=== PATIENT | female | born 1970 | race African-American/Black ===

== ENCOUNTER → 2024-03-31 11:00 | Outpatient (REF) | payer MEDICARE, MEDICAID, SELFPAY | LOC: HWWDC 11:00 | PROVIDERS: ATTENDING PHYSICIAN Nurse Practitioner Adult Health; FAMILY PHYSICIAN Internal Medicine | DX: Z85.3 Personal history of malignant neoplasm of breast (principal); Z12.31 Encounter for screening mammogram for malignant neoplasm of breast | CPT/HCPCS: 77063; 77067 ==

== ENCOUNTER → 2024-04-26 07:26 | Outpatient (REF) | payer MEDICARE, MEDICAID, SELFPAY | LOC: HWRAD 07:26 | PROVIDERS: ATTENDING PHYSICIAN Internal Medicine | DX: R14.0 Abdominal distension (gaseous) (principal) | CPT/HCPCS: 76700 ==

== ENCOUNTER → 2024-06-27 10:07 | Outpatient (REF) | payer MEDICARE, MEDICAID, SELFPAY | LOC: MRI 10:07 | PROVIDERS: ATTENDING PHYSICIAN Internal Medicine | DX: D18.03 Hemangioma of intra-abdominal structures (principal) | CPT/HCPCS: 74183; A9575 ==

== ENCOUNTER → 2024-07-05 13:37 | Outpatient (REF) | payer MEDICARE, MEDICAID, SELFPAY | LOC: HWRAD 13:37 | PROVIDERS: ATTENDING PHYSICIAN Internal Medicine | DX: R59.0 Localized enlarged lymph nodes (principal) | CPT/HCPCS: 71250 ==

== ENCOUNTER → 2024-09-08 08:56 | Outpatient (REF) | payer MEDICARE, MEDICAID, SELFPAY | LOC: MRI 08:56 | PROVIDERS: ATTENDING PHYSICIAN Specialist; FAMILY PHYSICIAN Internal Medicine | DX: R26.81 Unsteadiness on feet (principal) | CPT/HCPCS: 70551 ==

== ENCOUNTER → 2024-09-22 06:37 | Outpatient (REF) | payer MEDICARE, MEDICAID, SELFPAY | LOC: RAD 06:37 | PROVIDERS: ATTENDING PHYSICIAN Internal Medicine | DX: R59.0 Localized enlarged lymph nodes (principal) | CPT/HCPCS: 71260; Q9967 ==

== ENCOUNTER 2025-02-18 14:28 | Inpatient (IN) | payer MEDICARE, MEDICAID, SELFPAY ==
[2025-02-18] VITALS (8 sets, daily range): BP systolic 122–139; BP diastolic 81–109; BMI 25.0
--- NOTE | 2025-02-18 11:03 | ED.GENMED ---
History of Present Illness
General
Chief Complaint: Abdominal Symptoms
Source: other (staff from [facility] )
Exam Limitations: other
Time Seen by Provider: 02/18/25 10:50
History of Present Illness
History of Present Illness:
Patient is a 54-year-old female with history of developmental disability bipolar disorder, sigmoid volvulus, with sigmoidectomy presents to the ER for evaluation. Caregiver reports patient has not had any stool in her ostomy since Wednesday for the
past 2 days. She also reports patient will not eat however will drink.
caregiver reports abdomen is distended.
In review of history patient was seen here status post Azul's for sigmoid volvulus July 2024
Past History
Past History
ED Past Medical History: Cancer, Hypothyroidism, Psychiatric, Other and Other
ED Past Surgical History: None
Social History
Tobacco: Non-smoker
Alcohol: None
Drug: None
Personal: Single
Living: halfway
Employment: Disabled
Family History
Family History: Other
Phy Exam
General Physical Exam
General Presentation: no apparent distress
General age: appears stated age and appears older than age
General Skin: warm
General Habitus: debilitated
General Mental: alert
General Hydration: dry mucous membranes
Cardiovascular Exam
Cardiovascular Exam: tachycardia
Pulmonary Exam
Pulmonary Exam: lungs clear and no respiratory distress
Gastrointestinal Exam
Gastrointestinal Exam: soft and other (Distended ostomy bag in place no stool in bag )
Neurological Exam
Neurological Exam: alert and other (does not communicated verbally )
Musculoskeletal Exam
Musculoskeletal Exam: full ROM
Skin Exam
Skin Exam: normal color and warm/dry
Psychiatric Exam
Psychiatric Exam: normal mood/affect
Course
Orders/Labs/Results
Orders:
Orders
02/18/25 11:13
Electrocardiogram (*1) Stat
Reason for Study: Abdominal Pain
Cardiac Monitoring- Treatment ONCE
EKG- Treatment ONCE
IV Insert/Care/Rem.- Treatment PRN
0.9% Sodium Chloride 1000 ml [Nss] 1,000 ml IV BOLUS
Ondansetron Injectable [Zofran] 4 mg IV NOW STA
02/18/25 11:17
CT Abd/pelvis W Iv Cont Urgent
Comment:
Reason For Exam: no stool in ostomy ; distended , elevated hr
02/18/25 11:18
Complete Blood Count/With Diff Urgent
Comprehensive Metabolic Panel Urgent
Lipase Urgent
02/18/25 11:27
Lactic Acid Urgent
02/18/25 12:14
Urinalysis Reflex To Culture Urgent
Date Specimen was Collected: 02/18/25
Time Specimen was Collected: 12:13
Urine Microscopic Reflex Cult Urgent
02/18/25 12:[address] Non Medication Order As Directed
Physician Order: NGT
Above order entered?: Yes
02/18/25 13:11
SURGICAL CONSULT Routine
Consulting Provider: Tyrell Frank
Was physician already notified: Yes
Reason for consult: SBO on CT
02/18/25 13:18
Gastrointestinal Tubes As Directed
Type: [place] sump
To suction?: Yes
Type of suction: Low intermittent
To straight drainage/gravity?: Yes
Directions to clamp NG tube: for ambulation/meds <30min
Irrigate tube?: Yes
Irrigant: Tap Water
Frequency: Q4H
Amount in mls: 30
Irrigation Directions: Irrigate Q4H and PRN
Comment: 16fr [place] sump
02/18/25 13:46
Midazolam HCl [Versed] 1 mg IV NOW STA
02/18/25 13:49
Midazolam HCl [Versed] 5 mg .ROUTE .STK-MED ONE
02/18/25 13:58
Restraints - Non Violent As Directed
Justification-Patient:: 1-Attempts to remove tube
Restraint Type-: Soft Limb-L&R Wrist/4rail
Apply From (date): 02/18/25
Apply from (time): 14:01
Remove (date): 02/19/25
Remove (time): 23:59
02/18/25 14:02
HYDROmorphone [Dilaudid] 0.25 mg IV NOW STA
02/18/25 14:06
Chest Single View Frontal CR [CR Chest Single View] Stat
Comment:
Reason For Exam: NGT placement
02/18/25 14:08
HYDROmorphone [Dilaudid] 0.25 mg IV NOW STA
02/18/25 14:12
Admit/Transfer Patient As Directed
Co-Sign Provider:
Level of Care: Inpatient admission
Assign to:: Medical/Surgical
Physician / Group: Hospitalists, Azam
Diagnosis: Small Bowel Obstruction
Reason for Hospitalization: SBO
Expected length of stay greater than two midnights?: Yes
ELOS- Estimated Length of Stay in days: 4
I certify the patient meets the requirements for IP care: Yes
02/18/25 14:15
Code Status As Directed
Resuscitation Status: Full Code
02/18/25 14:24
NG Tube [Gastrointestinal Tubes] As Directed
To suction?: Yes
Type of suction: Low intermittent
02/18/25 Dinner
NPO
Allow oral meds: No
Allow clear liquids: No
02/18/25 15:39
Acetaminophen 1000MG/100Ml [Ofirmev] 1,000 mg in 100 ml IV Q6HPRN
Acetaminophen IV Indication:: No ID & No Enteral Access
HYDROmorphone [Dilaudid] 0.25 mg IV Q4HPRN PRN
Lactated Ringers [Lr] 1,000 ml IV 100 mls/hr
Ondansetron Injectable [Zofran] 4 mg IV Q6HPRN PRN
02/18/25 15:39
Activity As Directed
Activity Level: As Tolerated
Intake/ Output As Directed
Frequency: Per unit guidelines
Vital Signs As Directed
Frequency: Per unit guidelines
Pt Eval And Treat Routine
Activity Level: As Tolerated
DX Deep Vein Thrombosis Video Routine
02/18/25 18:00
Enoxaparin Sodium [Lovenox] 40 mg SC QPM
02/19/25 06:00
Complete Blood Count/With Diff IN AM
Comprehensive Metabolic Panel IN AM
Magnesium IN AM
TSH IN AM
02/19/25 08:00
Pantoprazole [Protonix IV] 40 mg IV DAILY
Abnormal Lab Results
02/18/25 02/18/25
11:18 12:14
RDW 14.8 H %
(11.5-14.5)
MPV 10.8 H fL
(7.4-10.4)
Absolute Monos (auto) 1.0 H 10^3/uL
(0.1-0.6)
Monocytes % 16.0 H %
(1.7-9.3)
Glucose 113 H mg/dl
(70-99)
Calcium 11.1 H mg/dl
(8.4-10.2)
Urine Ketones 1+ A
(Negative)
Urine Albumin (Reflex) 2+ A
(Neg - Trace)
02/18/25 11:18
02/18/25 11:18
Vital Signs
Initial and Last Documented VS:
Initial Vital Signs
Temp Pulse Resp BP Pulse Ox
98.6 F 153 18 136/92 93
02/18/25 10:41 02/18/25 10:41 02/18/25 10:41 02/18/25 10:41 02/18/25 10:41
Last Documented Vital Signs
Temp Pulse Resp BP Pulse Ox
98.6 F 112 13 132/109 95
02/18/25 10:41 02/18/25 14:45 02/18/25 14:45 02/18/25 15:00 02/18/25 15:15
Hydrographical Technical Officer consulted with Physician
Hydrographical Technical Officer consulted with physician?: Yes
Name of Physician Consulted: Ju
MDM/Problems Addressed
Differential Diagnosis Includes:
Not limited to bowel obstruction, mass, hernia, mesenteric ischemia
MDM/Problems Addressed:
Patient is a 54-year-old female with a history developmental delay from [facility] history of having Aris surgery for sigmoid volvulus here in July. Patient has an ostomy. Patient presents from group facility with decreased output from
ostomy over the past several days. She is a poor historian however distended on exam heart rate elevated to the 140s. Patient was given fluids which did not heart rate. CAT scan does show high-grade small bowel obstruction. In addition patient
does have cystic mass which is shown in the pelvis from previous imaging as well. This has increased in size. Case discussed with Dr. Frank surg inhalation therapist who does recommend NG tube and admit. Case admitted to the hospitalist. I did speak with
patient's sister, Mehreen Ocampo over the phone.
Chronic conditions affecting care:
History of Azul's procedure with sigmoid volvulus; developmental delay not limited to bowel obstruction
*Radiology
Radiology exam reviewed: radiology read reviewed
*Pulse Oximetry
SaO2: 95
Oxygen Mode of Delivery: Room air
Patient hypoxic: no
*EKG
Interpreted by ED Provider?: Yes
Heart Rate: 124
Rate: normal
Rhythm: sinus
Ischemia: no ischemia
*Critical Care Note
Total Time (30-74mins, 75-104mins- exclusive of procedures): Not Applicable
Data Reviewed
Source: patient and other (Staff from [facility])
Patient Management
Discussion with other providers: Behaviorist (surg DR Frank )
ED Attending Note
-
Portions of this chart may have been created with voice recognition software.� Occasional wrong word or��sound alike� substitutions may have occurred due to the inherent limitations of voice recognition software.
Discharge Plan
Departure
Patient Disposition: Admit
Date of Disposition: 02/18/25
Time of Disposition: 12:41
Admit to: Med/Surg
Admit to doctor: hospitalist
Presentation/result/management discussed w/ accepting MD/DO: Hospitalist
Patient with high blood pressure during this ER visit?: Yes
Condition: Fair
Covid-19: Not Applicable
Discharge Problem:
high grade small bowel obstruction
Interventions
Interventions:
*Risk Screen - Suicide Last Done: 02/18/25 10:41
*General Assessment Last Done: 02/18/25 10:41
*Neglect/Abuse Screening Last Done: 02/18/25 10:41
*ED- Fall Risk Assessment Last Done: 02/18/25 11:30
*ED COVID-19 Vaccine History Last Done: 02/18/25 11:30
*Nursing Disposition Last Done: 02/18/25 15:39
SK-Avoqio-Iccvnhtjjw Assessment Last Done: 02/18/25 11:30
Discharge Date and Time
Discharge Date/Time: 02/18/25 15:40
[2025-02-18] MEDS: NSS 1000 IV (11:16)
[2025-02-18] MEDS: ZOFRAN 4 MG IV (11:16)
[2025-02-18 11:36] LABS: Hematocrit 40.2 % (37.0-47.0); Hemoglobin 13.7 g/dL (12.0-16.0); Mean Corp Hgb Conc. 34.1 g/dL (33.0-37.0); Mean Corpuscular Volume 85.2 fL (81.0-99.0); Nucleated Red Blood Cells % 0 %; Platelet Count 223 10^3/uL (130-400); Red Cell Dist. Width 14.8 % (11.5-14.5)
[2025-02-18 11:58] LABS: ALT (SGPT) 12 U/L (0-35); AST (SGOT) 23 U/L (14-36); Albumin 4.0 g/dl (3.5-5.0); Alkaline Phosphatase 71 U/L (38-126); Blood Urea Nitrogen 14 mg/dl (7-17); Calcium 11.1 mg/dl (8.4-10.2); Carbon Dioxide 30 mmol/L (22-30); Chloride 99 mmol/L (98-107); Glucose 113 mg/dl (70-99); Lipase 65 U/L (23-300); Potassium 4.1 mmol/L (3.5-5.1); Sodium 135 mmol/L (135-145); Total Protein 7.1 g/dl (6.3-8.2); eGFR > 60.00
[2025-02-18 12:28] LABS: Urine Character Clear (Clear)
[2025-02-18 12:57] LABS: Urine Red Blood Cell 0-2 /HPF (0-2); Urine Squamous Cell 16-20 /LPF (Few); Urine White Cell 0-2 /HPF (0-5)
[2025-02-18] MEDS: VERSED 1 MG IV (13:55)
[2025-02-18] MEDS: DILAUDID 0.25 MG IV (14:07)
--- NOTE | 2025-02-18 14:25 | CON.GS ---
Consultation
-
Date/Time Consultation Performed: 02/18/25 1345
Medical History
-
Chief Complaint: abdominal pain/distention
History of Present Illness:
Ms Kellogg is a 54 yo female with a h/o developmental disability, bipolar, ptsd, hypothyroid with ex lap for sigmoidectomy and creation of end colostomy for volvulus in June of 2024 who presents from her care home with abdominal pain,
increasing abdominal distention, loss off appetite and no stool output since Wednesday. A caregiver is at bedside to provide history as Ms Kellogg is unable. She is able to answer simple questions and does nod her head yes that her abdomen hurts. Her
caregiver notes that she has not been eating or drinking much since around . She has had no vomiting.
Past Medical History
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
Past Surgical History: Bowel Resection (ex lap with sigmoidectomy and creation of end colostomy 06/2025)
Social History
Tobacco: Non-Smoker
Alcohol: None
Living: Assisted Living
Employment: Disabled
Family History
Family History: Reviewed & Not Pertinent
Allergies / Home Medications
Allergy/AdvReac Type Severity Reaction Status Date / Time
clonazepam Allergy Unknown Unknown Verified 02/18/25 10:41
haloperidol (From Haldol) Allergy Unknown Unknown Verified 02/18/25 10:41
molindone (From Moban) Allergy Unknown Unknown Verified 02/18/25 10:41
nickel Allergy Unknown Unknown Verified 02/18/25 10:41
Thioxanthenes Allergy Unknown Unknown Verified 02/18/25 10:41
�Medication �Instructions �Recorded �Confirmed �Type
acetaminophen 300 mg-codeine 30 mg 1 ea PO Q4 PRN pain 01/23/17 01/23/17 History
tablet
acetaminophen 325 mg capsule 650 mg PO Q4 PRN 01/23/17 01/23/17 History
pain/fever/headache
atomoxetine 18 mg capsule 18 mg PO DAILY 01/23/17 01/23/17 History
calcium 600 mg (as 2 ea PO HS 01/23/17 01/23/17 History
carbonate)-vitamin D3 10 mcg (400
unit) tablet (Calcium 600 + D(3))
carbamide peroxide 10 % oral rinse 10 ml PO HS 01/23/17 01/23/17 History
(Antiseptic Mouth Cleanser)
dextromethorphan-guaifenesin 10 10 ml PO Q4HPRN PRN cough 01/23/17 01/23/17 History
mg-100 mg/5 mL oral syrup
divalproex 500 mg tablet,extended 750 mg PO HS 01/23/17 01/23/17 History
release 24 hr
ibuprofen 600 mg tablet 600 mg PO Q6 PRN pain 01/23/17 01/23/17 History
levothyroxine 50 mcg tablet 50 mcg PO DAILY 01/23/17 01/23/17 History
loratadine 10 mg tablet 10 mg PO DAILY PRN cough/allergies 01/23/17 01/23/17 History
medroxyprogesterone 150 mg/mL 1 ml IM .Q12 WEEKS 01/23/17 01/23/17 History
intramuscular syringe
(Depo-Provera)
multivitamin (Daily Multiple 1 ea PO DAILY 01/23/17 01/23/17 History
tablet)
ondansetron 4 mg disintegrating 4 mg PO TIDPRN PRN nausea/vomiting 01/23/17 Rx
tablet #10 tabs
pseudoephedrine HCl 30 mg tablet 30 mg PO Q6 PRN nasal congestion 01/23/17 01/23/17 History
(Sudogest)
risperidone 3 mg tablet 3 mg PO HS 01/23/17 01/23/17 History
tolterodine 2 mg capsule,extended 2 mg PO HS 01/23/17 01/23/17 History
release 24 hr
acetaminophen 325 mg tablet 650 mg PO Q4HPRN PRN mild 07/12/24 07/12/24 History
pain/headache/temp>101
atomoxetine 18 mg capsule 18 mg PO DAILY Mental 07/12/24 07/12/24 History
Health/Anxiety
calcium 600 mg (as 2 tab PO HS Supplement 07/12/24 07/12/24 History
carbonate)-vitamin D3 10 mcg (400
unit) tablet (Calcium 600 + D(3))
dextromethorphan-guaifenesin 10 10 ml PO Q4HPRN PRN cough 07/12/24 07/12/24 History
mg-100 mg/5 mL oral syrup (Chest
Congestion Relief DM)
divalproex 250 mg tablet,extended 250 mg PO DAILY Mental 07/12/24 07/12/24 History
release 24 hr Health/Anxiety
divalproex 500 mg tablet,extended 500 mg PO HS Mental Health/Anxiety 07/12/24 07/12/24 History
release 24 hr
docusate sodium 100 mg capsule 100 mg PO BID Constipation 07/12/24 07/12/24 History
hydroxyzine HCl 25 mg tablet 25 mg PO DAILYPRN PRN anxiety 07/12/24 07/12/24 History
before medical procedure
latanoprost 0.005 % eye drops 1 drp BOTH EYES HS Eye Condition 07/12/24 07/12/24 History
levothyroxine 50 mcg tablet 50 mcg PO DAILY Thyroid 07/12/24 07/12/24 History
loratadine 10 mg tablet 10 mg PO DAILYPRN PRN allergy/cough 07/12/24 07/12/24 History
neomycin-bacitracn Zn-polymyxn 3.5 1 applic topical TIDPRN PRN 07/12/24 07/12/24 History
mg-400 unit-5,000 unit top oint cuts/scrapes/abrasion
pkt (Triple Antibiotic)
polyethylene glycol 3350 17 gram 17 g PO Q48H Constipation 07/12/24 07/12/24 History
oral powder packet (Gavilax)
pseudoephedrine HCl 30 mg tablet 30 mg PO Q6HPRN PRN nasal 07/12/24 07/12/24 History
(Sudogest) congestion
risperidone 3 mg tablet 3 mg PO HS Mental Health/Anxiety 07/12/24 07/12/24 History
therapeutic multivitamin 1 tab PO DAILY Supplement 07/12/24 07/12/24 History
tolterodine 2 mg capsule,extended 2 mg PO HS Urinary Issue 07/12/24 07/12/24 History
release 24 hr
Review of Systems
-
History Source: Patient and Other (caregiver at bedside)
All other systems: Negative unless noted
A 10 point review of systems was completed, and was negative except as per HPI.
Physical Exam
Vital Signs
Temp Pulse Resp BP Pulse Ox
98.6 F 148 15 134/107 92
02/18/25 10:41 02/18/25 14:00 02/18/25 14:00 02/18/25 13:00 02/18/25 13:45
02/17/25 02/18/25 02/19/25
06:59 06:59 06:59
Actual Weight 66.9 kg
Body Mass Index (BMI) 0.0
Lab Results
02/18/25 11:18
02/18/25 11:18
WBC 6.5 10^3/uL (4.8-10.8) 02/18/25 11:18
Hgb 13.7 g/dL (12.0-16.0) 02/18/25 11:18
Hct 40.2 % (37.0-47.0) 02/18/25 11:18
Plt Count 223 10^3/uL (130-400) 02/18/25 11:18
Abs Immat Gran (auto) 0.0 10^3/uL (0-0.05) 02/18/25 11:18
Neutrophils % 59.0 % (42.2-75.2) 02/18/25 11:18
Physical Exam
General: Well Developed and Well Nourished
HEENT: Moist Mucous Membranes
Respiratory: Non Labored Respirations
GI: Soft, Tender (grossly), Distended (severe) and Other (stoma pink, viable. Some minimal stool in appliance. )
Skin: Warm and Dry
Neuro: Awake, Alert and AO x 3
Psych: Calm
Assessment / Plan
-
54 yo female with h/o developmental disability and prior ex lap with sigmoidectomy and colostomy creation for sigmoid volvulus 06/2024 who presents with abdominal distention and no stool outputs from stoma x3 days. CT imaging reviewed with with
small bowel distention and findings consistent with what is likely a high grade SBO secondary to adhesions. No pneumatosis. No evidence of bowel threat or compromise. Significant abd distention on exam but not tender. Stoma pink/viable. Afebrile.
Tachycardic with hypertension present. No leukocytosis.
Plan:
NGT placed at bedside in the ED with assistance from nursing. Versed given d/t patient agitation with placement. Secured at 60cm at the right nare. Auscultated in the stomach. XR verified good placement.
NPO with ice chips for comfort
Analgesics/antiemetics
Medical management as per primary team
No plans for emergent surgery at this time, will follow for improvement with bowel decompression/rest and IVF
--- NOTE | 2025-02-18 15:28 | HPS.HSE ---
Addendum entered and electronically signed by Ana M Nascimento MD 02/18/25 17:00:
I personally performed a history and physical exam of the patient and discussed management with the resident. I reviewed the resident's note and agree with the documented findings and plan of care HPI/CC.
GENERAL: well developed, well nourished, developmentally delayed female in some distress while getting NGT placed
HEENT: NG/AT--NGT to low suction
HEART: regular rate and rhythm, +S1, +S2, tachycardic
LUNGS : clear to auscultation bilaterally
ABDOM: soft, tender with guarding, distended, no bowel sounds--ostomy with scant soft stool
EXT: no cyanosis, clubbing, or edema
NEUROLOGIC: grossly intact
SBO-- likely due to adhesions from sigmoidectomy and ostomy creation--cannot rule out contribution from enlarging cystic mass in plevis--NPO/IVF/NGT--surgery consult apprec--follow abdominal exams and x-ray--pain control, antiemetics
Hx of Left breast cancer, unknown treatment history--Growing pelvic cystic mass--unclear etiology--would try to get records regarding breast CA treatment--consideration for biopsy of cystic mass by IR--pt also has mediastinal LAD with liver lesions
(although last imaging favored angiomas)
PTSD/Bipolar disorder--Continue home valproic acid but with IV dosing--hold oral meds (risperdal, atomoxetine)
Hypothyroidism--hold synthroid for now--if NPO prolonged, will need IV synthroid (1/2 oral dose)
Overactive bladder-- Hold home tolterodine 2 mg p.o. at bedtime
developmental delay--lives in [facility] with caregiver
DVT proph-- Lovenox
CODE STATUS--Full code
Original Note:
Family Physician
-
Family Physician: Pako Wagner
Chief Complaint
-
Abdominal pain and bloating
History of Present Illness
Libby is a 54-year-old female with developmental delay, bipolar disorder, PTSD, left breast cancer (unknown clear history), hypothyroidism, sigmoid volvulus s/p Aris surgery with ostomy in July 2024 who [facility] from a [facility] with her
caregiver for 3 days of no to low ostomy output. Per caregiver, Libby had her last solid meal on Wednesday followed by an appointment with her surgeon on . However since Wednesday, she has not been able to tolerate any solid foods. She
continues to take in liquids such as perry manju and soup. Her caregiver reports that she has also been complaining of abdominal pain, is not passing gas, has increased fatigue, nausea, and lethargy. Her caregiver states ostomy bag is usually half
full, however she has barely had any output since Wednesday. In the ED, Libby was tachycardic to the 140s and had elevated blood pressure from her baseline. This morning, she was given milk of magnesia, and had very limited ostomy output. CT A/P was
remarkable for a high-grade small bowel obstruction, continued growth of pelvic cystic mass, abdominal pelvic ascites, liver lesions (questionable hemangiomas), and right hilar lymphadenopathy (inflammatory/reactive versus metastatic). General
surgery was consulted, and NG tube was placed with sedation and restraints. She was admitted to the med/surge floor for further management of her SBO. Of note, Libby is gentle, verbal, and able to answer questions and follow instructions
appropriately, however, detailed history must be obtained from caregiver and penitentiary nursing staff. Moreover, it is unknown the history and status of her breast cancer, and if she had any treatment. This will need to be further investigated in
the coming days.
Medical History
Past Medical History
Past Medical History: Reports Cancer (Left breast cancer, incomplete history), Hypothyroidism and Psychiatric (Bipolar disorder, PTSD)
Additional Past Medical History:
Developmental delay
Past Surgical History: Reports Bowel Resection (Sigmoidectomy and creation of ostomy in August 12)
Additional Past Surgical History:
Sigmoidectomy and creation of ostomy on July 2024
Social History
Tobacco: Non-smoker
Alcohol: None
Drug: None
Living: Other (In a penitentiary with 24/7 caregiver)
Family History
Family History: Unable to Obtain
Allergies / Home Medications
Allergies reflects when Allergies were last updated in [employer].
Home Medications with original date entered in [employer]
Allergy/Medication List:
As per chart, include, clonazepam, haloperidol, molindone, nickel, thioxanthenes
Review of Systems
-
History Source: Other (Caregiver)
Constitutional: Reports Fatigue
EENT: Reports No Symptoms
Respiratory: Reports No Symptoms
Cardiac: Reports No Symptoms
Abdomen/GI: Reports Abdominal Pain, Nausea, Constipated and Pain
: Reports Other (No ostomy output)
Musculoskeletal: Reports No Symptoms
Skin: Reports No Symptoms
Neurological: Reports No Symptoms
Endocrine: Reports No Symptoms
Hematologic/Lymphatic: Reports No Symptoms
Physical Exam
Vital Signs
Vital Signs
Temp Pulse Resp BP Pulse Ox
98.6 F 148 15 134/107 92
02/18/25 10:41 02/18/25 14:00 02/18/25 14:00 02/18/25 13:00 02/18/25 13:45
Physical Exam
General: Other (Laying in bed, making eye contact, and nodding when asked questions. She is guarding her abdomen.)
HEENT: NormoCephalic, Moist mucous membranes and PERRLA
Respiratory: Clear and Non Labored Respirations
Cardiac: S1/S2 and Regular Rhythm
GI: Tender, Distended, Ostomy (With very little brown, mushy stool output) and Other (Bloated, no bowel sounds heard)
Skin: Warm and Dry
Neuro: AO x 3
Psych: Calm
Laboratory Results
-
02/18/25 11:18
02/18/25 11:18
Laboratory Results
Lactic Acid 1.3 mmol/L (0.7-2.0) 02/18/25 11:27
Total Bilirubin 0.9 mg/dl (0.2-1.3) 02/18/25 11:18
AST 23 U/L (14-36) 02/18/25 11:18
ALT 12 U/L (0-35) 02/18/25 11:18
Alkaline Phosphatase 71 U/L (38-126) 02/18/25 11:18
Lipase 65 U/L (23-300) 02/18/25 11:18
Data Reviewed
-
CT Scan: Discussed with Physician
Lab Data: Discussed with Physician
Impression/Plan
-
IMPRESSION: Libby is a 54-year-old female with developmental delay, bipolar disorder, PTSD, left breast cancer (unknown clear history), hypothyroidism, sigmoid volvulus s/p Aris surgery with ostomy in July 2024 who [facility] from a penit[facility]
with her caregiver for 3 days of no to low ostomy output found to have a high-grade small bowel obstruction on CT A/P today. See full CT A/P 02/18/2025 report below:
CT findings are most compatible with a high-grade small bowel obstruction.
Continued growth of a cystic mass in the pelvis now measuring up to 10.8 cm in size.
Mild abdominopelvic ascites.
Similar appearance of a large number of liver lesions with the largest measuring 9.6 cm in the left lobe, incompletely characterized on this exam but previously felt to represent hemangiomas on the prior abdominal MRI.
Right hilar lymphadenopathy, inflammatory/reactive versus metastatic.
PLAN:
#SBO, likely due to adhesions 2/2 sigmoidectomy and ostomy creation
#Abdominal pain and nausea 2/2 SBO
#Low ostomy output
-Consult surgery
--Per surgery, NPO for now. No oral meds. Surgery will follow.
-IV LR at 100 mL/h
-Critical I's/O's
-CBC with differential, CMP, mag
-Pain regimen: IV Dilaudid 0.25 mg every 4 hours as needed and IV Tylenol 1000 mg
- Continue IV Zofran 4 mg as needed for nausea
#Left breast cancer, unknown history
#Growing pelvic cystic mass
It is unclear what the status of her cancer is. Given that CT A/P in the ED showed increase in size of pelvic cystic mass, it is possible that her SBO was caused in part or completely by this mass.
- Obtain more history from penitentiary nursing and chart review
- Consider IR consult for biopsy of cystic mass
#PTSD
#Bipolar disorder
-Continue home valproic acid but with IV dosing.
--250 mg in the morning and 500 mg in the evening
-Hold home risperidone 3 mg and atomoxetine 18 mg capsule: Please note allergies before considering alternatives.
#Hypothyroidism
- Hold home levothyroxine 50 mg daily ISO n.p.o.
--Restart per pharmacy if NPO longer than 72 hours
#Overactive bladder
- Hold home tolterodine 2 mg p.o. at bedtime
DVT prophy: Lovenox
CODE STATUS: Full code
--- NOTE | 2025-02-18 16:05 | CM ---
senior manager creative services reviewed patient's chart and met with patient and home appliances mechanic Gill at bedside. Patient with a past medical history of developmental disability, bipolar, PTSD and Colostomy. Patient resides at [facility]. One story home with
ramp to enter, patient requires supervision with her walker per Gill at [facility]pc. Patient had [facility] visiting nurses and referral sent to [facility] to follow up with patient after discharge.
Nurse tomorrow Wednesday [facility] [phone]
[facility] nurse and report [phone]

[facility]
[phone]
[2025-02-18] MEDS: LR 1000 IV (16:18)
[2025-02-18] MEDS: OFIRMEV 100 IV (16:19)
[2025-02-18] MEDS: LOVENOX 40 MG SC (16:20)
[2025-02-18] MEDS: LEVOTHROID 25 MCG IV (18:41)
[2025-02-18 19:10] LABS: Glucose - Point of Care 92 mg/dl (70-99)
[2025-02-18] MEDS: DEPACON 55 MG IV (21:17)
[2025-02-19] LABS: Glucose - Point of Care 76 mg/dl (70-99)
--- NOTE | 2025-02-19 00:14 | W.PN.UPDATE ---
Update Note
Progress Note Update
BS 76, NPO, will change fluids. D5NS@100/hr.
[2025-02-19] MEDS: D5/0.9% SODIUM CHLORIDE 1000 IV ×2 (00:36→13:38)
[2025-02-19 05:36] LABS: Glucose - Point of Care 89 mg/dl (70-99)
[2025-02-19 06:00] VITALS: BMI 24.1
[2025-02-19 06:27] LABS: Hematocrit 37.7 % (37.0-47.0); Hemoglobin 12.5 g/dL (12.0-16.0); Mean Corp Hgb Conc. 33.2 g/dL (33.0-37.0); Mean Corpuscular Volume 88.5 fL (81.0-99.0); Nucleated Red Blood Cells % 0 %; Platelet Count 207 10^3/uL (130-400); Red Cell Dist. Width 14.9 % (11.5-14.5)
[2025-02-19 06:50] LABS: ALT (SGPT) 12 U/L (0-35); AST (SGOT) 28 U/L (14-36); Albumin 3.3 g/dl (3.5-5.0); Alkaline Phosphatase 60 U/L (38-126); Blood Urea Nitrogen 12 mg/dl (7-17); Calcium 9.7 mg/dl (8.4-10.2); Carbon Dioxide 33 mmol/L (22-30); Chloride 102 mmol/L (98-107); Estimated Creatinine Clearance 94 ml/min; Glucose 93 mg/dl (70-99); Magnesium 2.2 mg/dl (1.6-2.3); Potassium 3.6 mmol/L (3.5-5.1); Sodium 138 mmol/L (135-145); Total Protein 6.0 g/dl (6.3-8.2); eGFR > 60.00
[2025-02-19 07:16] LABS: TSH 3.15 uIU/ml (0.47-4.68)
[2025-02-19 07:25] VITALS: BP 118/88
--- NOTE | 2025-02-19 07:36 | W.PN.GS2 ---
Addendum entered and electronically signed by Juan Lemon MD 02/19/25 16:51:
I saw and examined the patient independently.
The resident's documentation was reviewed and I agree with the note, assessment and plan except where noted below.
Comment: 54-year-old female, known to the general surgery service. 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 NG tube
placed yesterday, already with some clinical signs of improvement. Ostomy is working and output from the NG tube is acrobatic dancer in color. Will continue nonoperative management of her small bowel obstruction.
N.p.o., IV fluids, NG tube to low intermittent wall suction.
Facility Worker/onc consult for growing pelvic cystic mass.
Original Note:
Today's Communication / Plan
-
NPO
BOWEL REST
Continue the NG Tube decompression
Assessment / Plan
-
54 yo female with a h/o developmental disability, bipolar, ptsd, hypothyroid with ex lap for sigmoidectomy and creation of end colostomy for volvulus in June of 2024 presented with abdominal distension.
# Abdominal distention secondary to Small Bowel Obstruction:
-Afebrile, vitals are stable.
-NGT at right side nares.
-Small bowel obstruction probably due to adhesion/hernia.
On 02/18/25 CT with iv contrast:
high-grade small bowel obstruction.
Continued growth of a cystic mass in the pelvis now measuring up to 10.8 cm in size.
Mild abdominopelvic ascites.
-Currently the patient is on NPO with ice chips for comfort
-Continue the IV fluids.
-No plans for emergent surgery at this time, patient has an improvement with bowel decompression/rest and noticed bowel movement in coleostomy tube.
- Monitor for NG tube blockage, osteomy color changes.
Subjective Data
-
Date of Service: February 19, 2025
History obtained from the nurse (on duty for this patient):
Currently patient is on NG tube on her right nares and left side colostomy tube.
Overnight the patient doesn't experience abdominal pain, nausea, vomiting, fever, chills, dysuria. She has abdominal distension which is not increasing in nature comparing from the admission.
Objective Data
-
Intake and Output
02/18/25 02/19/25 02/20/25
06:59 06:59 06:59
Intake Total 1795 / 1795
Output Total 960 / 960
Balance 835 / 835
Intake:
IV fluids (Total) 1525 / 1525
IV piggybacks 150 / 150
Amount instilled into GI Tube ( 120 / 120
Total)
[place] Sump 120 / 120
Output:
Liquid stool amount 50 / 50
Colostomy 50 / 50
Gastrointestinal tube output ( 910 / 910
Total)
[place] Sump 910 / 910
Other:
Number of approximated LARGE 2
amounts of urine
How many times incontinent 1
MODERATE amount urine
Vital Signs
Temp Pulse Resp BP Pulse Ox
99.0 F 107 20 122/81 93
02/18/25 22:48 02/18/25 22:48 02/18/25 22:48 02/18/25 22:48 02/18/25 22:48
Lab Results
02/19/25 05:49
02/19/25 05:49
Calcium 9.7 mg/dl (8.4-10.2) 02/19/25 05:49
Magnesium 2.2 mg/dl (1.6-2.3) 02/19/25 05:49
Total Bilirubin 0.7 mg/dl (0.2-1.3) 02/19/25 05:49
AST 28 U/L (14-36) 02/19/25 05:49
ALT 12 U/L (0-35) 02/19/25 05:49
Alkaline Phosphatase 60 U/L (38-126) 02/19/25 05:49
Total Protein 6.0 g/dl (6.3-8.2) L 02/19/25 05:49
Albumin 3.3 g/dl (3.5-5.0) L 02/19/25 05:49
Physical Exam
-
General: Well Developed and Well Nourished
HEENT: Moist Mucous Membranes, NG tube present- 240 ml ( clear yellow fluid with few green tinge)
Respiratory: Non Labored Respirations
GI: Soft, non-Tender (grossly), Distended (severe) and Other (stoma pink, viable. Some minimal stool 20 ml in appliance, no gas present.)
Left side reducible abdominal wall hernia present lateral to umbilical region), gurgling sound on auscultation.
Skin: Warm and Dry
Neuro: Awake, Alert and AO x 3
Psych: Calm
Patient has a richard catheter: No
Patient has a central line: No
[2025-02-19 07:41] VITALS: BP 118/88
[2025-02-19] MEDS: PROTONIX IV 40 MG IV (07:42)
[2025-02-19] MEDS: NSS (PRESERVATIVE FREE) 10 ML IV (07:42)
[2025-02-19] MEDS: DEPACON 52.5 MG IV ×2 (07:42→22:01)
[2025-02-19 10:34] VITALS: BP 123/88; BP 130/98; PULSE 101; O2SAT 90
--- NOTE | 2025-02-19 10:46 | W.PN.HOSP.TC ---
Addendum entered and electronically signed by Kenneth Ventura MD 02/19/25 12:30:
called Dr. Wagner's office and left a message for call back
Addendum entered and electronically signed by Kenneth Ventura MD 02/19/25 12:25:
Spoke to Raquel STUART with pt
GI referred to Hepatology , september 2024 USS done here and SHE SAW hepatology Sary Orellana
Seeing Pulm for sarcoid and supposed to get an CT for Pulm , seen
Saw Jumpbasting Armhole Baster in October , did a pelvic exam and a pap smear , Wood Jumpbasting Armhole Baster and' everything is fine. ' Raquel will find out about the LIME SLAKER who saw her.
H/O Malignant Cystosarcoma of the breast.
Pt has Dementia also
Correction ' epidural carcinomatosis ' should read as ' peritoneal carcinomatosis'
Original Note:
Today's Communication/Plan
-
X-ray of the abdomen
Ultrasound of the pelvis
Pt eval
Assessment / Plan
Assessment / Plan
54-year-old with small bowel obstruction abdominal pain and bloating
CT abdomen pelvis-compatible with high-grade small bowel obstruction.Continued growth of a cystic mass in the pelvis no measuring 10.8 cm in size.Mild abdominal pelvic ascites. Similar appearance of a large number of liver lesions with the largest
measuring 9.6 corporate planning manager in the left lobe incompletely characterized on this exam but felt to represent hemangiomas on the prior abdominal MRI. Right hilar lymphadenopathy, inflammatory/reactive versus metastatic.
Patient is awake and alert
Cardiovascular system S1-S2 appreciated
Chest clear to auscultation
Abdomen distended, nontender
Ostomy with some stool noted
Bowel sounds are high-pitched but appreciated
No pedal edema
# Small bowel obstruction
Likely secondary to adhesions from sigmoidectomy and ostomy creation in July 2024 for sigmoid volvulus
Cannot rule out from enlarging cystic mass in the pelvis
N.p.o. IV fluid
Surgery consulted and following
# 10.8 cm cystic mass in the pelvis-discussed with interventional radiology there is no epidural carcinomatosis therefore not able to biopsy and wound able to puncture the cyst. Hilar nodes could be sampled via bronchoscopy/EUS not percutaneously.
Unclear if it arises from ovaries or not. Start with a pelvic ultrasound.
Check tumor markers CEA, CA125, AFP
# History of lump in breast -details unclear, sister doesn't think it was cancer.
# PTSD/bipolar disorder
Continue valproate IV
Atomoxetine, risperidone currently on hold
# Overactive bladder hold tolterodine p.o.
# Hypothyroidism-add IV levothyroxine
# Developmental delay-lives in a halfway with caregiver
# DVT prophylaxis-Lovenox
# Full code
Spoke to sister and updated. Made her aware about the pelvic mass.
Left a message for [facility] to discuss her medical history and previous work up
Part of this note was created using voice recognition system. Occasional wrong word or��sound alike� substitutions may have inadvertently occurred due to the inherent limitations of voice recognition software. If noted kindly bring it to my
attention for correction.
Anticipated Discharge: > 48 hours
Subjective/Interval History
-
Date of Service: February 19, 2025
Objective Data
-
Labs:
Laboratory Results
02/19/25
05:49
WBC 5.5
Hgb 12.5
Hct 37.7
Plt Count 207
Sodium 138
Potassium 3.6
Chloride 102
Carbon Dioxide 33 H
BUN 12
Creatinine 0.6
Glucose 93
Calcium 9.7
Total Bilirubin 0.7
AST 28
ALT 12
Alkaline Phosphatase 60
Vital Signs:
Vital Signs
Temp Pulse Resp BP Pulse Ox
98.7 F 100 16 118/88 96
02/19/25 07:25 02/19/25 07:25 02/19/25 07:25 02/19/25 07:25 02/19/25 07:25
I&O
02/18/25 02/19/25 02/20/25
06:59 06:59 06:59
Intake Total 1795 / 1795
Output Total 960 / 960
Balance 835 / 835
[2025-02-19 11:36] LABS: Glucose - Point of Care 108 mg/dl (70-99)
[2025-02-19] MEDS: ZOFRAN 4 MG IV (12:28)
[2025-02-19 13:20] VITALS: BP 126/81
--- NOTE | 2025-02-19 14:12 | W.CON.GYNONC ---
Consultation
-
Date/Time Consultation Requested: 02/19/2025
Date/Time Consultation Performed: 02/19/2025
Performing Provider: Praneeth English
Reason for Consultation: Pelvic Mass
Chief Complaint
-
inability to eat
History of Present Illness
54-year-old female with developmental delay, bipolar disorder, PTSD, left breast cancer (unknown clear history), hypothyroidism, sigmoid volvulus s/p Aris surgery with ostomy in July 2024 who presents from a shelter with her caregiver for
3 days of no to low ostomy output.
�� Per caregiver, Libby had her last solid meal on Wednesday followed by an appointment with her surgeon on . However since Wednesday, she has not been able to tolerate any solid foods. She continues to take in liquids such as perry manju and
soup. Her caregiver reports that she has also been complaining of abdominal pain, is not passing gas, has increased fatigue, nausea, and lethargy. Her caregiver states ostomy bag is usually half full, however she has barely had any output since
Wednesday. In the ED, Libby was tachycardic to the 140s and had elevated blood pressure from her baseline.
I was asked to see her due to pelvic mass on CT
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
Past Surgical History: Bowel Resection (ex lap with sigmoidectomy and creation of end colostomy 06/2025)
Social History
Tobacco: Non-Smoker
Alcohol: None
Living: Assisted Living
Employment: Disabled
Family History
Family History: Reviewed & Not Pertinent
Medical History
Allergies
Allergies reflect when allergies were last updated in [employer].
clonazepam Allergy (Unknown, Verified 02/18/25 10:41)
Unknown
haloperidol (From Haldol) Allergy (Unknown, Verified 02/18/25 10:41)
Unknown
molindone (From Moban) Allergy (Unknown, Verified 02/18/25 10:41)
Unknown
nickel Allergy (Unknown, Verified 02/18/25 10:41)
Unknown
Thioxanthenes Allergy (Unknown, Verified 02/18/25 10:41)
Unknown
Physical Exam
Vital Signs / I&O
Vitals
Temp Pulse Resp BP Pulse Ox
98.7 F 100 16 118/88 96
02/19/25 07:25 02/19/25 07:25 02/19/25 07:25 02/19/25 07:25 02/19/25 07:25
I&O
02/17/25 02/18/25 02/19/25 02/20/25
06:59 06:59 06:59 06:59
Intake Total 1795 / 1795
Output Total 960 / 960
Balance 835 / 835
Physical Exam
General: No Apparent Distress and Comfortable
Respiratory: Clear and Non Labored Respirations
Cardiac: S1/S2 and Regular Rhythm
GI: Soft, Non Tender and Other (hernia midline incision present)
Musculoskeletal: No Clubbing, No Cyanosis and No Edema
Skin: Warm, Dry and Rash
Neuro: AO x 3
Hematologic/Lymphatic: No Lymphadenopathy
Results
-
02/19/25 05:49
02/19/25 05:49
[facility]
[address] [place] [id number]
[phone]
Patient Name: LIBBY HARRIS
: 1970
Unit Number: [id number]
Age/Sex: 54/F
Patient
Location: 2 [facility]
Order Provider: Kenneth Ventura MD
Exam Service Date: 02/19/25

Diagnostic Imaging Report
SignedOrder #:[id number]
Exams: US Pelvis Only (non-obstetric)
EXAMINATION: Ultrasound pelvis only
INDICATION: 54-year-old with small bowel obstruction. Cystic pelvic mass on CT of the abdomen and pelvis.
COMPARISON: CT of the abdomen and pelvis from February 18, 2025. CT of the abdomen and pelvis from July 12, 2024.
FINDINGS: Ultrasound of the pelvis is performed, with transabdominal technique.
The uterus measures 6.4 x 2.2 x 3.0 cm, with no evidence of a focal uterine mass. The endometrial stripe measures 5 mm, with no focal abnormality.
Within the midline superior to the uterus, there is a cystic mass appears to be a simple cystic mass, measuring 9.9 x 6.7 x 7.6 cm. This is present on CT examinations of February 18, 2025 and July 12, 2024, without significant interval change.
In the anterolateral right pelvis, there is a separate simple cystic mass which measures 2.7 x 3.6 x 3.6 cm, and also appears unchanged from CT of July 12, 2024. There is a small amount of free fluid surrounding this right adnexal cystic mass.
It is uncertain if this arises from the right ovary, with no adjacent stromal tissue evident.
The left ovary is not visualized.
IMPRESSION: No focal abnormality of the uterus or endometrium.
Midline simple cystic large pelvic mass, which is stable dating back to CT examination of July 12, 2024. This suggests a large benign cyst, although cystadenoma is also possible.
In the right adnexal region, there is a smaller simple cyst which is stable. Small amount of free fluid adjacent to this right adnexal cyst.
Electronically signed by Neil Oliveros MD, 02/19/2025 1:55 PM
Dictated By: Domo REEDER,Neil Izaguirre.
Dictated Date & Time: 02/19/25 1344
[facility]
[address] [place] [id number]
[phone]
Patient Name: LIBBY HARRIS
: 1970
Unit Number: [id number]
Age/Sex: 54/F
Patient
Location: EMR
Order Provider: Jasmin Maguire
Exam Service Date: 02/18/25

Diagnostic Imaging Report
SignedOrder #:[id number]
Exams: CT Abd/pelvis W Iv Cont
PROCEDURES: CT Abd/pelvis W Iv Cont
CLINICAL INDICATION: Decreased ostomy output. Abdominal distention.
TECHNIQUE: A CT examination of the abdomen and pelvis was performed following the administration of nonionic intravenous contrast. Oral contrast was not administered. Coronal and sagittal reformatted images were obtained. Automatic exposure control
radiation dose reduction technology was utilized.
COMPARISON: CT abdomen/pelvis 07/12/2024. MRI abdomen 06/27/2024
FINDINGS:
CHEST: Bibasilar atelectasis. Left hemidiaphragm elevation. Right infrahilar lymphadenopathy.
ABDOMEN: Multiple liver lesions with the largest measuring 9.6 cm in the left lobe, incompletely characterized on this exam but previously felt to represent hemangiomas on the prior abdominal MRI. Multiple small hypoattenuating splenic foci,
indeterminate. The gallbladder, bile ducts, pancreas, bilateral adrenal glands, and kidneys are unremarkable other than a few small bilateral renal cysts. No hydronephrosis.
Mild abdominal ascites, greatest in the left upper quadrant..
The abdominal aorta is normal in caliber.
Fluid-filled and diffusely dilated small bowel loops measuring up to 6 cm in diameter, most compatible with a small bowel obstruction. The transition point is somewhat difficult to discern but appears to be located in the mid abdomen (series 202,
image 20). Distal small bowel loops are small in caliber. Previous sigmoidectomy with a left anterior abdominal wall ostomy. No extraluminal free air or fluid collection.
PELVIS: Cystic mass in the pelvis measuring 10.8 x 10.4 cm, increased in size compared to 10.0 x 3.3 cm on the previous CT. Mild free fluid in the pelvis. The urinary bladder is unremarkable.
SKELETON: Chronic degenerative changes of the spine, bilateral sacroiliac joints, hips, and symphysis pubis. Mild lumbar levoscoliosis. A few sclerotic foci are again noted in the lumbar spine, sacrum, and pelvis.
IMPRESSION:
CT findings are most compatible with a high-grade small bowel obstruction.
Continued growth of a cystic mass in the pelvis now measuring up to 10.8 cm in size.
Mild abdominopelvic ascites.
Similar appearance of a large number of liver lesions with the largest measuring 9.6 cm in the left lobe, incompletely characterized on this exam but previously felt to represent hemangiomas on the prior abdominal MRI.
Right hilar lymphadenopathy, inflammatory/reactive versus metastatic.
Electronically signed by Ne De Paz, 02/18/2025 12:22 PM
[employer] Dose Report: Up-to-date CT equipment and radiation dose reduction techniques were employed. CTDIvol: 7.5 - 7.6 mGy. DLP: 895 mGy-cm.
Dictated By: Wanda De Paz DO
Dictated Date & Time: 02/18/25 1204
Impression / Plan
-
Overall she has a benign appearing cyst arising from probably left ovary and smaller cyst on right ovary.
The cyst is simple and likely benign. in 2023 it had in essence similar appearance.
In and of itself for an asymptomatic cyst I do not recommend any intervention. The patient has had significant surgical history of sigmoid resection for volvulus creation of Azul's pouch and colostomy. It is likely that the adhesions in the
pelvis will prevent it from torsion. She is asymptomatic and does not have any pain related to this. In the setting her small bowel obstruction appears to be likely due to adhesions in mid abdomen based on past CT predictive ability. I doubt that
the SBO is related to the cystic mass and the small changes less than [address] is clinically not significant over a long period of time.
If the patient's small bowel obstruction does not resolve and she requires to be operated on I am happy to be present and perform bilateral salpingo-oophorectomy . I am not recommending obtaining a CA125 because it is most likely going to be
elevated in the setting of small bowel obstruction due to inflammatory changes of abdomen.
Praneeth Englihs MD
[phone]
--- NOTE | 2025-02-19 17:50 | PTCARENOTE ---
Pt yelling out and attempting to yank NGT out. RN caregivers at bedside came doorway asking for help. This RN attempted to redirect pt which was unsuccessful. This RN and another Rn placed b/l wrist restraints on pt. Restraints order obtained. Care
ongoing.
[2025-02-19] MEDS: LEVOTHROID 25 MCG IV (18:06)
[2025-02-19] MEDS: LOVENOX 40 MG SC (18:07)
[2025-02-19 19:00] VITALS: BP 120/81
[2025-02-19 19:09] LABS: CA 125 24.8 U/mL (0-35)
[2025-02-19 19:11] LABS: AFP Male/Tumor Marker 3.13 ng/ml
--- NOTE | 2025-02-19 19:18 | PTCARENOTE ---
Pt bed alarm set off before change of shift and pt was standing at bedside. Both b/l wrist restraints were off. NGT pulled out. IV pulled out and on floor. Pt aggressive with staff and swinging at this RN. Code timoteo called. Pt escorted back to
bed. Pt placed back in b/l wrist restraints. Pt resting comfortably in bed. Report given to nightshift RN. Care ongoing.
[2025-02-19] MEDS: STERILE WATER FOR INJECTION 2.1 ML IM (19:51)
[2025-02-19] MEDS: ZYPREXA 5 MG IM (19:51)
[2025-02-19 20:13] LABS: CEA 1.26 ng/ml
[2025-02-19] MEDS: DEPACON 55 MG IV (22:01)
[2025-02-19] MEDS: XALATAN OPHTHALMIC SOLUTION 1 DROP BOTH EYES (22:01)
[2025-02-19 23:00] VITALS: BP 136/91
[2025-02-20] MEDS: D5/0.9% SODIUM CHLORIDE IV ×2 (00:19→23:20)
--- NOTE | 2025-02-20 00:47 | PTCARENOTE ---
Right NGT placed 60 at the nose, set to low inter suction draining thin clear fluid. Pts abd less distended than on prior assessment at 20:00, umbilical hernia noticeable. Pt colostomy with no drainage noted, BS hypoactive throughout .
[2025-02-20] MEDS: D5/0.9% SODIUM CHLORIDE 1000 IV (05:34)
[2025-02-20 06:00] VITALS: BMI 23.8
[2025-02-20 06:44] LABS: Hematocrit 34.1 % (37.0-47.0); Hemoglobin 11.2 g/dL (12.0-16.0); Mean Corp Hgb Conc. 32.8 g/dL (33.0-37.0); Mean Corpuscular Volume 90.2 fL (81.0-99.0); Platelet Count 198 10^3/uL (130-400); Red Cell Dist. Width 14.8 % (11.5-14.5)
[2025-02-20 07:18] LABS: Blood Urea Nitrogen 9 mg/dl (7-17); Calcium 9.0 mg/dl (8.4-10.2); Carbon Dioxide 32 mmol/L (22-30); Chloride 107 mmol/L (98-107); Estimated Creatinine Clearance 94 ml/min; Glucose 85 mg/dl (70-99); Potassium 3.3 mmol/L (3.5-5.1); Sodium 141 mmol/L (135-145); eGFR > 60.00
--- NOTE | 2025-02-20 07:18 | W.PN.GS2 ---
Addendum entered and electronically signed by Sylvester Tinoco MD 02/20/25 10:41:
Patient seen and examined
Clinical improvement with passage of flatus and stool. No nausea or vomiting. No fevers.
Gen: NAD
HEENT: NGT with non-bilious outputs
Abd: soft, NT, distended (improved), non-peritoneal, ostomy PPV with stool leaking from appliance
Patient is a 54 yo F s/p ex lap, sigmoidectomy and creation of end colostomy for volvulus in June of 2024 who p/w abdominal distension
Clinical improvement. Abdominal x-ray yesterday demonstrates continued dilation of the small bowel. Plan for NGT clamp trial today. MRI ordered by Gynecology, fear if removal of NGT today risks of potential aspiration risks during this study.
-- Clamp NGT, hook to suction for any symptoms
-- MRI pelvis ordered by [facility], would try to obtain abdomen/pelvis for hepatic lesions as well
Original Note:
Today's Communication / Plan
-
Planning for NG tube clamping for MRI procedure.
Assessment / Plan
-
54 yo female with a h/o developmental disability, bipolar, ptsd, hypothyroid with ex lap for sigmoidectomy and creation of end colostomy for volvulus in June of 2024 presented with abdominal distension.
# Abdominal distention secondary to Small Bowel Obstruction:
-Afebrile, vitals are stable.
-NGT at right side nares.
-Small bowel obstruction probably due to adhesion/hernia.
On 02/18/25 CT with iv contrast:
high-grade small bowel obstruction.
Continued growth of a cystic mass in the pelvis now measuring up to 10.8 cm in size.
Mild abdominopelvic ascites.
On 02/19/25 Abdominal X ray compared with CT scan:
Elevation of the left hemidiaphragm. Nasogastric tube is present with its tip just underneath the elevated left hemidiaphragm, probably within the stomach.
There are multiple dilated air-filled loops of small bowel, similar to prior CT scan, and suggesting persistent small bowel obstruction. Small bowel loop in the right lower abdomen measures up to 6.5 cm in diameter.
-Currently the patient is on NPO with ice chips for comfort
-Continue the IV fluids.
-No plans for emergent surgery at this time, patient has an improvement with bowel decompression/rest and noticed bowel movement in coleostomy tube.
-Planning to clamp NG tube for MRI
Subjective Data
-
Date of Service: February 20, 2025
History obtained from the nurse (on duty in charge for this patient):
Currently patient is on NG tube on her right nares and left side colostomy tube.
Overnight the patient doesn't experience abdominal pain, nausea, vomiting, fever, chills, dysuria. Her abdominal distension got reduced comparing from yesterday.
Objective Data
-
Intake and Output
02/19/25 02/20/25 02/21/25
06:59 06:59 06:59
Intake Total 1795 / 1795 2552.5 / 2552.5
Output Total 960 / 960 950 / 970 20 / 20
Balance 835 / 835 1602.5 / 1582.5 -20 / -20
Intake:
IV fluids (Total) 1525 / 1525 2300 / 2300
IV piggybacks 150 / 150 102.5 / 102.5
Amount instilled into GI Tube ( 120 / 120 150 / 150
Total)
George Sump 120 / 120 150 / 150
Output:
Liquid stool amount 50 / 50 20 / 20
Colostomy 50 / 50 20 / 20
Gastrointestinal tube output ( 910 / 910 950 / 950
Total)
George Sump 910 / 910 950 / 950
Other:
Number of approximated MODERATE 2 2
amounts of urine
Number of approximated LARGE 2
amounts of urine
How many times incontinent 1
MODERATE amount urine
How many times incontinent 2
SATURATED amount urine
Vital Signs
Temp Pulse Resp BP Pulse Ox
98.2 F 98 18 136/91 91
02/19/25 23:00 02/19/25 23:00 02/19/25 23:00 02/19/25 23:00 02/19/25 23:00
Lab Results
02/20/25 05:48
Calcium 9.7 mg/dl (8.4-10.2) 02/19/25 05:49
Magnesium 2.2 mg/dl (1.6-2.3) 02/19/25 05:49
Total Bilirubin 0.7 mg/dl (0.2-1.3) 02/19/25 05:49
AST 28 U/L (14-36) 02/19/25 05:49
ALT 12 U/L (0-35) 02/19/25 05:49
Alkaline Phosphatase 60 U/L (38-126) 02/19/25 05:49
Total Protein 6.0 g/dl (6.3-8.2) L 02/19/25 05:49
Albumin 3.3 g/dl (3.5-5.0) L 02/19/25 05:49
Physical Exam
-
General: Well Developed and Well Nourished
HEENT: Moist Mucous Membranes, NG tube present- 400 ml ( clear yellow fluid with few green tinge)
Respiratory: Non Labored Respirations
GI: Soft, non-Tender (grossly), Distended (severe) and Other (stoma pink, viable. stool present, no gas present.)
Left side reducible abdominal wall hernia present lateral to umbilical region), gurgling sound on auscultation.
Skin: Warm and Dry
Neuro: Awake, Alert and AO x 3
Psych: Calm
Patient has a richard catheter: No
Patient has a central line: No
[2025-02-20 07:25] VITALS: BP 151/104
[2025-02-20] MEDS: STERILE WATER FOR INJECTION 2.1 ML IM (07:38)
[2025-02-20] MEDS: ZYPREXA 5 MG IM (07:38)
--- NOTE | 2025-02-20 07:40 | PTCARENOTE ---
Pt sitting up in bed, yelling and cursing. Pt had just been to the bathroom, and wanted staff to stay in her room. Pt not able to be redirected at this time w/ verbal instruction. Pt's restraints to b/l wrists reapplied after walking to the
bathroom, and dose of Zyprexa given as ordered, to prevent self harm, or harm to nursing staff. Will continue to monitor closely.
--- NOTE | 2025-02-20 09:14 | W.PN.HOSP.TC ---
Today's Communication/Plan
-
see plan
Assessment / Plan
Assessment / Plan
54-year-old with small bowel obstruction abdominal pain and bloating
CT abdomen pelvis-compatible with high-grade small bowel obstruction.Continued growth of a cystic mass in the pelvis no measuring 10.8 cm in size.Mild abdominal pelvic ascites. Similar appearance of a large number of liver lesions with the largest
measuring 9.6 instructor adjunct surgical technician in the left lobe incompletely characterized on this exam but felt to represent hemangiomas on the prior abdominal MRI. Right hilar lymphadenopathy, inflammatory/reactive versus metastatic.
# Small bowel obstruction
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
-improving with ostomy output
-NGT, plan to clamp today per GS
-IVF - D5 NS
-appreciate GS consult
# 10.8 cm cystic mass in the pelvis-discussed with interventional radiology there is no peritoneal carcinomatosis therefore not able to biopsy and wound able to puncture the cyst. Hilar nodes could be sampled via bronchoscopy/EUS not percutaneously.
-appreciate First Responder/Onc Eval
-plan is for MRI today
Hypokalemia
-replete
# History of lump in breast -details unclear, sister doesn't think it was cancer.
# PTSD/bipolar disorder
Continue valproate IV
Atomoxetine, risperidone currently on hold
# Overactive bladder hold tolterodine p.o.
# Hypothyroidism-add IV levothyroxine
# Developmental delay-lives in a senior care with caregiver
# DVT prophylaxis-Lovenox
# Full code
Spoke to sister and updated. Made her aware about the pelvic mass.
Left a message for [facility] to discuss her medical history and previous work up
Part of this note was created using voice recognition system. Occasional wrong word or��sound alike� substitutions may have inadvertently occurred due to the inherent limitations of voice recognition software. If noted kindly bring it to my
attention for correction.
Anticipated Discharge: > 48 hours
Subjective/Interval History
-
Date of Service: February 20, 2025
patient is moaning out
Objective Data
-
Labs:
Laboratory Results
02/20/25
05:48
WBC 4.8
Hgb 11.2 L
Hct 34.1 L
Plt Count 198
Sodium 141
Potassium 3.3 L
Chloride 107
Carbon Dioxide 32 H
BUN 9
Creatinine 0.6
Glucose 85
Calcium 9.0
Vital Signs:
Vital Signs
Temp Pulse Resp BP Pulse Ox
99.4 F 105 20 151/104 93
02/20/25 07:25 02/20/25 07:25 02/20/25 07:25 02/20/25 07:25 02/20/25 07:25
I&O
02/19/25 02/20/25 02/21/25
06:59 06:59 06:59
Intake Total 1795 / 1795 2552.5 / 2552.5
Output Total 960 / 960 950 / 970
Balance 835 / 835 1602.5 / 1582.5 -20
Review of Systems
-
Unable to obtain full review of systems at this time due to: Patient Non-verbal
History Source: Patient
Physical Exam
-
General: Other (moaning out, NGT in place)
HEENT: Normocephalic and Atraumatic
Respiratory: Clear to Auscultation and Non Labored Respirations
Cardiac: Regular Rhythm and S1/S2
GI: Soft, Nontender, Nondistended and Ostomy (with leaking stool - RN aware )
Musculoskeletal: No Clubbing, No Cyanosis and No Edema
Skin: Warm and Dry
Neuro: Awake, Alert and No Sensory Deficits
Psych: Calm
Data Reviewed
-
Diagnostic Radiology: Report Reviewed by me
Labs: Labs Reviewed by me
[2025-02-20 09:50] LABS: Magnesium 2.2 mg/dl (1.6-2.3)
[2025-02-20] MEDS: PROTONIX IV 40 MG IV (10:45)
[2025-02-20] MEDS: NSS (PRESERVATIVE FREE) 10 ML IV (10:45)
[2025-02-20] MEDS: KCL 270 MEQ IV (10:46)
--- NOTE | 2025-02-20 15:42 | CM ---
CM reviewed chart- ADC>48 hours
Pt from [facility] shelter and pt accepted for service by Scarlet on dc
PT will VN recs
Discharge Disposition- return to [facility] with Scarlet PEGUERO
[2025-02-20 16:30] VITALS: BP 141/95
[2025-02-20] MEDS: LOVENOX SC ×2 (18:43→18:45)
[2025-02-20] MEDS: RISPERDAL 3 MG PO (21:16)
[2025-02-20] MEDS: XALATAN OPHTHALMIC SOLUTION 1 DROP BOTH EYES (21:16)
[2025-02-20] MEDS: DETROL 1 MG PO (21:18)
[2025-02-20] MEDS: DEPACON 57.5 MG IV (21:19)
[2025-02-20 22:22] LABS: Glucose - Point of Care 47 mg/dl (70-99)
[2025-02-20 22:22] LABS: Glucose - Point of Care 84 mg/dl (70-99)
[2025-02-20 23:10] VITALS: BP 143/98
[2025-02-21] MEDS: D5/0.9% SODIUM CHLORIDE 1000 IV ×3 (00:40→20:59)
[2025-02-21 06:24] VITALS: BMI 24.0
[2025-02-21 07:10] VITALS: BP 137/101
--- NOTE | 2025-02-21 07:15 | W.PN.GS2 ---
Addendum entered and electronically signed by Juan Lemon MD 02/21/25 09:51:
I saw and examined the patient independently.
The resident's documentation was reviewed and I agree with the note, assessment and plan except where noted below.
This is a 54-year-old female status post open sigmoidectomy with end colostomy for sigmoid volvulus in 2023 who presents with a small bowel obstruction now resolved. CT imaging demonstrated increase in a cystic pelvic mass.
Will obtain an MRI of the abdomen to better evaluate her liver hemangiomas as well as an MRI of the pelvis to better evaluate the cystic pelvic mass.
Okay to remove NG tube and after her imaging studies and start on a clear liquid diet.
General surgery will continue to follow.
Original Note:
Today's Communication / Plan
-
MRI SCAN
Assessment / Plan
-
54 yo female with a h/o developmental disability, bipolar, ptsd, hypothyroid with ex lap for sigmoidectomy and creation of end colostomy for volvulus in June of 2024 presented with abdominal distension.
# Abdominal distention secondary to Small Bowel Obstruction:
-Afebrile, vitals are stable.
-Clamped NGT at right side nare for the MRI abdomen without contrast for today. Planning to remove NG tube after MRI.
-Small bowel obstruction probably due to adhesion/hernia.
On 02/18/25 CT with iv contrast:
high-grade small bowel obstruction.
Continued growth of a cystic mass in the pelvis now measuring up to 10.8 cm in size.
Mild abdominopelvic ascites.
On 02/19/25 Abdominal X ray compared with CT scan:
Elevation of the left hemidiaphragm. Nasogastric tube is present with its tip just underneath the elevated left hemidiaphragm, probably within the stomach.
There are multiple dilated air-filled loops of small bowel, similar to prior CT scan, and suggesting persistent small bowel obstruction. Small bowel loop in the right lower abdomen measures up to 6.5 cm in diameter.
-Currently the patient is on NPO with ice chips for comfort
-Continue the IV fluids.
-No plans for emergent surgery at this time, patient has an improvement with bowel decompression/rest and noticed bowel movement in coleostomy tube.
Subjective Data
-
Date of Service: February 21, 2025
History obtained from the nurse (on duty in charge for this patient):
Currently patient has left side colostomy tube and clamped NG tube on her right nares.
Overnight the patient passed flatus, and had abdominal movement and abdominal distension reduced comparing from yesterday. Patient is ambulating around the room.
The pt doesn't experience abdominal pain, nausea, vomiting, fever, chills, dysuria.
Objective Data
-
Intake and Output
02/20/25 02/21/25 02/22/25
06:59 06:59 06:59
Intake Total 2552.5 / 2552.5 1370 / 1370
Output Total 950 / 970 220 / 220
Balance 1602.5 / 1582.5 1150 / 1150
Intake:
Oral fluids 120 / 120
IV fluids (Total) 2300 / 2300 1200 / 1200
IV piggybacks 102.5 / 102.5 50 / 50
Amount instilled into GI Tube ( 150 / 150
Total)
Mccaskill Sump 150 / 150
Output:
Liquid stool amount 20 / 20
Colostomy 20 / 20
Gastrointestinal tube output ( 950 / 950
Total)
Mccaskill Sump 950 / 950
Urine, Voided 200 / 200
Other:
Number of approximated MODERATE 2 1
amounts of urine
How many times incontinent 2
MODERATE amount urine
How many times incontinent 2 2
SATURATED amount urine
Vital Signs
Temp Pulse Resp BP Pulse Ox
98.8 F 103 16 143/98 94
02/20/25 23:10 02/20/25 23:10 02/20/25 23:10 02/20/25 23:10 02/20/25 23:10
Lab Results
02/20/25 05:48
Calcium 9.0 mg/dl (8.4-10.2) 02/20/25 05:48
Magnesium 2.2 mg/dl (1.6-2.3) 02/20/25 05:48
Total Bilirubin 0.7 mg/dl (0.2-1.3) 02/19/25 05:49
AST 28 U/L (14-36) 02/19/25 05:49
ALT 12 U/L (0-35) 02/19/25 05:49
Alkaline Phosphatase 60 U/L (38-126) 02/19/25 05:49
Total Protein 6.0 g/dl (6.3-8.2) L 02/19/25 05:49
Albumin 3.3 g/dl (3.5-5.0) L 02/19/25 05:49
Physical Exam
-
General: Well Developed and Well Nourished
HEENT: Moist Mucous Membranes, Clamped NG tube
Respiratory: Non Labored Respirations
GI: Soft, non-Tender (grossly), Distended (severe) and Other (stoma pink, viable. no stool , gas present.)
reducible abdominal wall hernia present lateral to umbilical region, midline abdominal surgical incisional scar present, gurgling sound on auscultation.
Skin: Warm and Dry
Neuro: Awake, Alert and AO x 3
Psych: Calm
Patient has a richard catheter: No
Patient has a central line: No
[2025-02-21 07:25] LABS: Glucose - Point of Care 78 mg/dl (70-99)
[2025-02-21] MEDS: ZYPREXA 5 MG IM (08:02)
[2025-02-21] MEDS: STERILE WATER FOR INJECTION 2.1 ML IM (08:04)
[2025-02-21] MEDS: NSS (PRESERVATIVE FREE) 10 ML IV (08:08)
[2025-02-21] MEDS: PROTONIX IV 40 MG IV (08:08)
[2025-02-21 08:27] LABS: Blood Urea Nitrogen 4 mg/dl (7-17); Calcium 8.9 mg/dl (8.4-10.2); Carbon Dioxide 26 mmol/L (22-30); Chloride 112 mmol/L (98-107); Estimated Creatinine Clearance 94 ml/min; Glucose 88 mg/dl (70-99); Magnesium 2.0 mg/dl (1.6-2.3); Potassium 3.4 mmol/L (3.5-5.1); Sodium 141 mmol/L (135-145); eGFR > 60.00
[2025-02-21] MEDS: SYNTHROID 50 MCG PO (10:01)
[2025-02-21] MEDS: DEPACON 52.5 MG IV (10:01)
[2025-02-21 11:42] LABS: Glucose - Point of Care 75 mg/dl (70-99)
[2025-02-21 11:57] VITALS: BMI 24.0
--- NOTE | 2025-02-21 12:28 | W.PN.HOSP.TC ---
Today's Communication/Plan
-
NGT to be pulled
clear liquid diet
stop IVF if tolerating diet
Assessment / Plan
Assessment / Plan
54-year-old with small bowel obstruction abdominal pain and bloating
CT abdomen pelvis-compatible with high-grade small bowel obstruction.Continued growth of a cystic mass in the pelvis no measuring 10.8 cm in size.Mild abdominal pelvic ascites. Similar appearance of a large number of liver lesions with the largest
measuring 9.6 control and recovery combat rescue in the left lobe incompletely characterized on this exam but felt to represent hemangiomas on the prior abdominal MRI. Right hilar lymphadenopathy, inflammatory/reactive versus metastatic.
# Small bowel obstruction
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
-improving with ostomy output
-OK for NGT removal today per GS
-CLD ordered
-stop IVF if patient tolerates clears
-appreciate GS consult
# 10.8 cm cystic mass in the pelvis-discussed with interventional radiology there is no peritoneal carcinomatosis therefore not able to biopsy and wound able to puncture the cyst. Hilar nodes could be sampled via bronchoscopy/EUS not percutaneously.
-appreciate Infrastructure Solutions Architect/Onc Eval
-s/p MRI - benign appearing
MR IMPRESSION:
10.2 cm midline pelvic cystic lesion that appears to arise from the left ovary. Smaller 3.6 cm cystic lesion of the right ovary. Both are simple appearing without significant nodularity, septations, or enhancement.
Mild abdominopelvic ascites.
Hypokalemia
-replete
# History of lump in breast -details unclear, sister doesn't think it was cancer.
# PTSD/bipolar disorder
Continue valproate IV - change to PO
Atomoxetine, risperidone currently on hold
# Overactive bladder
# Hypothyroidism-add IV levothyroxine
# Developmental delay-[facility] a [facility] with caregiver
# DVT prophylaxis-Lovenox
# Full code
Anticipated Discharge: 24 - 48 hours
Subjective/Interval History
-
Date of Service: February 21, 2025
she appears much improved today, no moaning
able to tell me she is hungry
Objective Data
-
Labs:
Laboratory Results
02/21/25
06:58
Sodium 141
Potassium 3.4 L
Chloride 112 H
Carbon Dioxide 26
BUN 4 L
Creatinine 0.5 L
Glucose 88
Calcium 8.9
Vital Signs:
Vital Signs
Temp Pulse Resp BP Pulse Ox
98.7 F 98 17 137/101 94
02/21/25 07:10 02/21/25 07:10 02/21/25 07:10 02/21/25 07:10 02/21/25 07:10
I&O
02/20/25 02/21/25 02/22/25
06:59 06:59 06:59
Intake Total 2552.5 / 2552.5 1370 / 1370
Output Total 950 / 970 220 / 220
Balance 1602.5 / 1582.5 1150 / 1150
Review of Systems
-
History Source: Patient
All other systems: Reviewed and negative
Physical Exam
-
General: No Apparent Distress
HEENT: PERRLA
Respiratory: Clear to Auscultation; Negative Wheezes
Cardiac: Regular Rhythm and S1/S2
GI: Soft and Other (ostomy with output )
Musculoskeletal: No Edema
Skin: Warm and Dry; Negative Rash
Neuro: AO x 3
Psych: Calm
Data Reviewed
-
Diagnostic Radiology: Report Reviewed by me
Labs: Labs Reviewed by me
[2025-02-21] MEDS: KCL 270 MEQ IV (13:00)
[2025-02-21 14:10] VITALS: BP 131/88
[2025-02-21 15:05] VITALS: BP 141/94
[2025-02-21 16:27] LABS: Glucose - Point of Care 80 mg/dl (70-99)
[2025-02-21] MEDS: LOVENOX 40 MG SC (18:07)
[2025-02-21] MEDS: DEPACON 57.5 MG IV (20:59)
[2025-02-21] MEDS: DETROL 1 MG PO (20:59)
[2025-02-21] MEDS: RISPERDAL 3 MG PO (20:59)
[2025-02-21 21:27] LABS: Glucose - Point of Care 105 mg/dl (70-99)
[2025-02-21] MEDS: XALATAN OPHTHALMIC SOLUTION 1 DROP BOTH EYES (22:01)
[2025-02-21 23:03] VITALS: BP 142/101
[2025-02-22 03:06] VITALS: BP 130/90
[2025-02-22 05:52] VITALS: BMI 24.0
[2025-02-22 06:54] LABS: Glucose - Point of Care 73 mg/dl (70-99)
[2025-02-22 07:07] LABS: Blood Urea Nitrogen 2 mg/dl (7-17); Calcium 9.0 mg/dl (8.4-10.2); Carbon Dioxide 27 mmol/L (22-30); Chloride 111 mmol/L (98-107); Estimated Creatinine Clearance 94 ml/min; Glucose 79 mg/dl (70-99); Potassium 3.6 mmol/L (3.5-5.1); Sodium 143 mmol/L (135-145); eGFR > 60.00
--- NOTE | 2025-02-22 07:43 | W.PN.GS2 ---
Addendum entered and electronically signed by Tyrell Frank MD 02/22/25 11:00:
I was physically present and personally performed the alfred portions of the surgical evaluation and/or procedure with the resident. I discussed the findings, reviewed the resident�s note, and confirmed the medical decision-making. I provided direct
supervision as required and agree with the assessment and plan as documented with the following additions/corrections:
Tolerated dietary advancement for breakfast
Denies abdominal pain
AFVSS
ABD: Soft, distended hernia but nontender. Left-sided ostomy with stool and air
Assessment/plan: 54-year-old female admitted with small bowel obstruction now resolving
Low residue diet as tolerated
Original Note:
Today's Communication / Plan
-
Advanced the diet.
Assessment / Plan
-
54 yo female with a h/o developmental disability, bipolar, PTSD, hypothyroid with ex lap for sigmoidectomy and creation of end colostomy for volvulus in June of 2024 presented with abdominal distension.
# Abdominal distention secondary to Small Bowel Obstruction:
-Afebrile, vitals are stable.
- NG tube removed after MRI.
-Small bowel obstruction probably due to adhesion/hernia.
On 02/18/25 CT with iv contrast:
high-grade small bowel obstruction.
Continued growth of a cystic mass in the pelvis now measuring up to 10.8 cm in size.
Mild abdominopelvic ascites.
On 02/19/25 Abdominal X ray compared with CT scan:
Elevation of the left hemidiaphragm. Nasogastric tube is present with its tip just underneath the elevated left hemidiaphragm, probably within the stomach.
There are multiple dilated air-filled loops of small bowel, similar to prior CT scan, and suggesting persistent small bowel obstruction. Small bowel loop in the right lower abdomen measures up to 6.5 cm in diameter.
On 02/21/25 Pelvic MRI w/o & w contrast:
10.2 cm midline pelvic cystic lesion that appears to arise from the left ovary. Smaller 3.6 cm cystic lesion of the right ovary. Both are simple appearing without significant nodularity, septations, or enhancement.
Mild abdominopelvic ascites.
-patient diet was improved from clear liquids to advanced diet.
-No plans for emergent surgery at this time, patient has an improvement with bowel decompression/rest and noticed bowel movement in coleostomy tube.
Subjective Data
-
Date of Service: February 22, 2025
Patient is feeling better, her NG tube was removed yesterday after MRI of the pelvis. She passed flatus, bowel movements, reduced abdominal distension overnight. She is ambulating around the room.
She has no concern for abdominal pain, fever, chills, nausea, vomiting.
Objective Data
-
Intake and Output
02/21/25 02/22/25 02/23/25
06:59 06:59 06:59
Intake Total 1370 / 1370 2835 / 2835
Output Total 220 / 220 500 / 500
Balance 1150 / 1150 2335 / 2335
Intake:
Oral fluids 120 / 120 360 / 360
IV fluids (Total) 1200 / 1200 2100 / 2100
IV piggybacks 50 / 50 375 / 375
Output:
Liquid stool amount 20 / 20 500 / 500
Colostomy 20 / 20 500 / 500
Urine, Voided 200 / 200
Other:
Number of approximated MODERATE 1 2
amounts of urine
Number of approximated LARGE 2
amounts of urine
How many times incontinent 2
MODERATE amount urine
How many times incontinent 2 3
SATURATED amount urine
Vital Signs
Temp Pulse Resp BP Pulse Ox
99.1 F 98 17 130/90 93
02/21/25 23:03 02/21/25 23:03 02/21/25 23:03 02/22/25 03:06 02/21/25 23:03
Lab Results
02/20/25 05:48
08/07/25 05:57
Calcium 9.0 mg/dl (8.4-10.2) 02/22/25 05:57
Magnesium 2.0 mg/dl (1.6-2.3) 02/21/25 06:58
Total Bilirubin 0.7 mg/dl (0.2-1.3) 02/19/25 05:49
AST 28 U/L (14-36) 02/19/25 05:49
ALT 12 U/L (0-35) 02/19/25 05:49
Alkaline Phosphatase 60 U/L (38-126) 02/19/25 05:49
Total Protein 6.0 g/dl (6.3-8.2) L 02/19/25 05:49
Albumin 3.3 g/dl (3.5-5.0) L 02/19/25 05:49
Physical Exam
-
General: Well Developed and Well Nourished
HEENT: Moist Mucous Membranes, NG tube removed.
Respiratory: Non Labored Respirations
GI: Soft, non-Tender (grossly), Distended (severe) and Other (stoma pink, viable. stool present, no gas)
reducible abdominal wall hernia present at umbilical region, midline abdominal surgical incisional scar present, gurgling sound on auscultation.
Skin: Warm and Dry
Neuro: Awake, Alert and AO x 3
Psych: Calm
Patient has a richard catheter: No
Patient has a central line: No
--- NOTE | 2025-02-22 07:55 | W.PN.HOSP.TC ---
Addendum entered and electronically signed by Karyna Willson MD 02/22/25 10:24:
Atelectasis is a valid diagnosis - continue IS
Original Note:
Today's Communication/Plan
-
advance diet
possible DC tomorrow if tolerates
Assessment / Plan
Assessment / Plan
54-year-old with small bowel obstruction abdominal pain and bloating admitted for SBO.
CT abdomen pelvis-compatible with high-grade small bowel obstruction.Continued growth of a cystic mass in the pelvis no measuring 10.8 cm in size.Mild abdominal pelvic ascites. Similar appearance of a large number of liver lesions with the largest
measuring 9.6 solar resource assessor in the left lobe incompletely characterized on this exam but felt to represent hemangiomas on the prior abdominal MRI. Right hilar lymphadenopathy, inflammatory/reactive versus metastatic.
# Small bowel obstruction
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
-s/p NGT
-improving with ostomy output
-tolerating clears
-advance to LRD
-appreciate GS
# 10.8 cm cystic mass in the pelvis-discussed with interventional radiology there is no peritoneal carcinomatosis therefore not able to biopsy and wound able to puncture the cyst. Hilar nodes could be sampled via bronchoscopy/EUS not percutaneously.
-appreciate Dietary Services Manager/Onc Eval
-s/p MRI - benign appearing
MR IMPRESSION:
10.2 cm midline pelvic cystic lesion that appears to arise from the left ovary. Smaller 3.6 cm cystic lesion of the right ovary. Both are simple appearing without significant nodularity, septations, or enhancement.
Mild abdominopelvic ascites.
Hepatic Hemangiomas
-MRI ordered
Hypokalemia
-replete
# History of lump in breast -details unclear, sister doesn't think it was cancer.
# PTSD/bipolar disorder
-continue home meds (that are on formulary0
# Overactive bladder
# Hypothyroidism-add IV levothyroxine
# Developmental delay-lives in a care home with caregiver
# DVT prophylaxis-Lovenox
# Full code
Anticipated Discharge: 24 - 48 hours
Subjective/Interval History
-
Date of Service: February 22, 2025
patient asking for food
no vomiting
Objective Data
-
Labs:
Laboratory Results
02/22/25
05:57
Sodium 143
Potassium 3.6
Chloride 111 H
Carbon Dioxide 27
BUN 2 L
Creatinine 0.5 L
Glucose 79
Calcium 9.0
Vital Signs:
Vital Signs
Temp Pulse Resp BP Pulse Ox
99.1 F 98 17 130/90 93
02/21/25 23:03 02/21/25 23:03 02/21/25 23:03 02/22/25 03:06 02/21/25 23:03
I&O
02/21/25 02/22/25 02/23/25
06:59 06:59 06:59
Intake Total 1370 / 1370 2835 / 2835
Output Total 220 / 220 500 / 500
Balance 1150 / 1150 2335 / 2335
Review of Systems
-
History Source: Patient
All other systems: Reviewed and negative
Physical Exam
-
General: No Apparent Distress
HEENT: PERRLA
Respiratory: Clear to Auscultation; Negative Wheezes
Cardiac: Regular Rhythm and S1/S2
GI: Soft and Other (ostomy with output )
Musculoskeletal: No Edema
Skin: Warm and Dry; Negative Rash
Neuro: AO x 3
Psych: Calm
Data Reviewed
-
Diagnostic Radiology: Report Reviewed by me
Labs: Labs Reviewed by me
[2025-02-22] MEDS: SYNTHROID 50 MCG PO (08:44)
[2025-02-22] MEDS: DEPAKOTE ER (24 HR RELEASE) 250 MG PO (08:45)
[2025-02-22] MEDS: NSS (PRESERVATIVE FREE) IV (08:45)
--- NOTE | 2025-02-22 09:36 | PN.CDI ---
CDI
- -
CDI:
Physician Documentation Request
Admit Date: 02/18/25 14:28
Dear Doctor Demetris,
02/18 CXR: 'Parenchymal opacity within both lower lungs, which is most likely atelectasis.'
02/19 Nursing Assessment: 'Breath Sounds: Diminshed'
02/18/25
15:45
Nasal Cannula flow liters per minute 2
Please indicate in your progress notes if you are in agreement that the above diagnosis is valid for this patient:
____ - Atelectasis is a valid diagnosis (Please include it in your progress notes)
____ - Atelectasis is not a valid diagnosis for this patient
____ - Atelectasis is not yet confirmed but remains a suspected condition
____ - Other
____ - Unable to determine
Use of terms such as suspected, likely, concern for, or probable are acceptable for a diagnosis that is being evaluated, monitored or treated as if it exists and can be coded in the inpatient setting, when documented at the time of discharge.
Thank you,
Anna Philippe RN, BSN
CDI Specialist
Available via [place] text
Please use your independent medical judgment in providing your response.
[2025-02-22 11:30] VITALS: BP 142/93
--- NOTE | 2025-02-22 11:42 | W.DCSUMMARY ---
Discharge Summary
Discharge Data
Date of Admission: 02/18/25
Date of Discharge: 02/23/25
-
Pending Results: No
Hospital Course
Discharging Physician : Dr. Karyna Willson
Disposition : Home with Home Health
Primary care physician : Dr. Pako Wagner
Principal Discharge diagnosis : small bowel obstruction, benign appearing ovarian cyst
Hospital Course :
Ms. 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 CT with evidence of high grade SBO. Patient was
admitted to medicine with GS consulting. She was kept NPO, IVF, NGT placed and symptoms improved with conservative management. Her diet was advanced and she is tolerating a LRD prior to discharge.
CT demonstrated pelvic cysts, this was worked up with pelvic US and MRI which suggested benign appearance. Patient was seen by Dr. English who does not recommend intervention for asymptomatic cyst. He wrote that it is likely that adhesions in
pelvis from prior surgery will prevent it from torsion.
Patient has a reproducible large abdominal wall hernia on exam and is referred to general surgery as outpatient.
Time spent on discharge was 31 minutes.
Important imaging findings :
CT A/P 02/18/25
IMPRESSION:
CT findings are most compatible with a high-grade small bowel obstruction.
Continued growth of a cystic mass in the pelvis now measuring up to 10.8 cm in size.
Mild abdominopelvic ascites.
Similar appearance of a large number of liver lesions with the largest measuring 9.6 cm in the left lobe, incompletely characterized on this exam but previously felt to represent hemangiomas on the prior abdominal MRI.
Right hilar lymphadenopathy, inflammatory/reactive versus metastatic.
CXR 02/18/25
IMPRESSION:
Nasogastric tube has been placed with its tip projecting just underneath the elevated left hemidiaphragm, and is likely within the stomach
PELVIC US 02/19/25
IMPRESSION: No focal abnormality of the uterus or endometrium.
Midline simple cystic large pelvic mass, which is stable dating back to CT examination of July 12, 2024. This suggests a large benign cyst, although cystadenoma is also possible.
In the right adnexal region, there is a smaller simple cyst which is stable. Small amount of free fluid adjacent to this right adnexal cyst.
ABDOMEN X-RAY 02/19/25
IMPRESSION: Nasogastric tube is present.
Persistent dilated air-filled loops of small bowel, suggesting persistent small bowel obstruction.
PELVIC MRI 02/21/25
IMPRESSION:
10.2 cm midline pelvic cystic lesion that appears to arise from the left ovary. Smaller 3.6 cm cystic lesion of the right ovary. Both are simple appearing without significant nodularity, septations, or enhancement.
Mild abdominopelvIc ascites.
Procedure findings :
Discharge Plan
-
Patient Disposition: Home with Home Care
Discharge Diagnosis/Procedures: small bowel obstruction, ovarian cyst, hepatic hemangiomas, abdominal wall hernia
Diet: Low Residue
Additional Diets: Low residue diet x 1 week then advance as tolerated
Activity: As tolerated
Driving Restrictions: As prior to admission
Bathing Restrictions: None
Other Services: VN and PT
Referrals:
Pako Wagner DO [Family Provider, Internal Medicine]
Mau Guido MD [Active, Surgical] - in two to four weeks
Referral Note: abdominal wall hernia
Additional Discharge Medication Instructions: Stop Loperamide until further directed by outpatient physicians
Take Miralax if needed for constipation.
Prescriptions:
Continued
risperidone 3 MG tablet
3 mg PO HS
levothyroxine 50 MCG tablet
50 mcg PO DAILY
divalproex 500 MG tablet extended release 24 hr
750 mg PO HS
pseudoephedrine HCl [Sudogest] 30 MG tablet
30 mg PO Q6 PRN (Reason: nasal congestion)
latanoprost 0.005 % Drops
1 drp BOTH EYES HS
acetaminophen 325 mg Tablet
650 mg PO Q4HPRN PRN (Reason: mild pain/headache/temp>101)
therapeutic multivitamin Tablet
1 tab PO DAILY
docusate sodium 100 mg Capsule
100 mg PO BID
hydroxyzine HCl 25 mg Tablet
25 mg PO DAILYPRN PRN (Reason: anxiety before medical procedure)
loratadine 10 mg Tablet
10 mg PO DAILYPRN PRN (Reason: allergy/cough)
divalproex 250 mg Tablet Extended Release 24 Hr
250 mg PO DAILY
atomoxetine 18 mg Capsule
18 mg PO DAILY
calcium carbonate-vitamin D3 [Calcium 600 + D(3)] 600 mg-10 mcg (400 unit) Tablet
2 tab PO HS
tolterodine 1 mg Tablet
1 mg PO HS
donepezil 10 mg Tablet
10 mg PO HS
magnesium hydroxide [Milk of Magnesia] 400 mg/5 mL Suspension
400 mg PO DAILY PRN (Reason: constipation)
Changed
polyethylene glycol 3350 [Gavilax] 17 gram Powder In Packet
17 g PO DAILYPRN PRN (Reason: constipation) Qty: 0 0RF
Discontinued
loperamide 2 mg Capsule
2 mg DAILY
Discharge Orders:
Discharge Patient (As Directed); Ordered 02/23/25
Ordered By: Karyna Willson
Discharge Date and Time
Print Language: PERSIAN
--- NOTE | 2025-02-22 14:35 | CM ---
CM following re: discharge planning.
Reviewed pt's chart, met with [facility] photo[facility] Johny to update on discharge plan progress.
According to pt most likely will be discharged tomorrow. [facility] nursing photoengraving supervisor Johny is aware and she stated [facility] staff will transport pt home.
IMM reviewed, placed on chart, pt has a copy.
PT and OT recommend home PT. Scarlet PEGUERO liaison following.
[facility] nurse and report [phone]
Please fax discharge instructions to [facility]: [phone]
Please fax discharge instructions to [facility]: [phone].
D/C plan: return back to [facility] with [facility] and staff support. [facility] staff will transport.
[2025-02-22 15:10] VITALS: BP 114/82
[2025-02-22 16:41] LABS: Glucose - Point of Care 99 mg/dl (70-99)
[2025-02-22] MEDS: LOVENOX 40 MG SC (17:46)
[2025-02-22] MEDS: RISPERDAL 3 MG PO (22:28)
[2025-02-22] MEDS: DEPAKOTE ER (24 HR RELEASE) 750 MG PO (22:28)
[2025-02-22] MEDS: DETROL 1 MG PO (22:29)
[2025-02-22] MEDS: ARICEPT 10 MG PO (22:29)
[2025-02-22] MEDS: XALATAN OPHTHALMIC SOLUTION 1 DROP BOTH EYES (22:30)
[2025-02-22 23:10] VITALS: BP 130/94
--- NOTE | 2025-02-23 07:09 | W.PN.GS2 ---
Addendum entered and electronically signed by Sylvester Tinoco MD 02/23/25 12:47:
Patient seen and examined. Agree with assessment plan as documented below.
No complaints. No reports of worsening abdominal pain, nausea, or vomiting. Ostomy continues to function producing stool.
Gen: NAD
Abd: soft, NT/ND, ostomy PPV - stool in appliance, palpable midline incisional hernias, soft reducible
Patient is a 54 yo F p/w SBO likely secondary to adhesions following a recent history of movements procedure for colonic volvulus in 06/2024
AVSS
No new labs
Clinical improvement. Okay for DC from surgical perspective
-- LRD
-- Okay for DC from surgical perspective
-- Outpatient follow-up with Dr. Guido on a non-emergent basis to monitor incisional hernias
Original Note:
Today's Communication / Plan
-
low residue diet recommended for this patient while on discharge.
Follow up in future with Dr Guido within 2-4 weeks to discuss regards abdominal incisional hernia.
Assessment / Plan
-
54 yo female with a h/o developmental disability, bipolar, PTSD, hypothyroid with ex lap for sigmoidectomy and creation of end colostomy for volvulus in June of 2024 presented with abdominal distension.
# Abdominal distention secondary to Small Bowel Obstruction:
-Afebrile, vitals are stable.
-Small bowel obstruction probably due to adhesion.
On 02/18/25 CT with iv contrast:
high-grade small bowel obstruction.
Continued growth of a cystic mass in the pelvis now measuring up to 10.8 cm in size.
Mild abdominopelvic ascites.
On 02/19/25 Abdominal X ray compared with CT scan:
Elevation of the left hemidiaphragm. Nasogastric tube is present with its tip just underneath the elevated left hemidiaphragm, probably within the stomach.
There are multiple dilated air-filled loops of small bowel, similar to prior CT scan, and suggesting persistent small bowel obstruction. Small bowel loop in the right lower abdomen measures up to 6.5 cm in diameter.
On 02/21/25 Pelvic MRI w/o & w contrast:
10.2 cm midline pelvic cystic lesion that appears to arise from the left ovary. Smaller 3.6 cm cystic lesion of the right ovary. Both are simple appearing without significant nodularity, septations, or enhancement.
Mild abdominopelvic ascites.
-low residue diet recommended for this patient while on discharge.
-patient has an improvement with bowel decompression/rest and noticed bowel movement in coleostomy tube.
- Future follow up with Dr Guido within 2-4 weeks.
Subjective Data
-
Date of Service: February 23, 2025
Overnight patient feels better, passed flatus, bowel movements, no concern for abdominal pain, nausea, vomiting, fever, chills.
Objective Data
-
Intake and Output
02/22/25 02/23/25 02/24/25
06:59 06:59 06:59
Intake Total 2835 / 2835 750 / 750
Output Total 500 / 500 350 / 350
Balance 2335 / 2335 400 / 400
Intake:
Oral fluids 360 / 360 750 / 750
IV fluids (Total) 2100 / 2100
IV piggybacks 375 / 375
Output:
Liquid stool amount 500 / 500 350 / 350
Colostomy 500 / 500 350 / 350
Other:
Number of approximated MODERATE 2
amounts of urine
Number of approximated LARGE 2 1
amounts of urine
How many times incontinent 1
MODERATE amount urine
How many times incontinent 3
SATURATED amount urine
Vital Signs
Temp Pulse Resp BP Pulse Ox
98.6 F 98 17 130/94 95
02/22/25 23:10 02/22/25 23:10 02/22/25 23:10 02/22/25 23:10 02/22/25 23:10
Lab Results
02/20/25 05:48
02/22/25 05:57
Calcium 9.0 mg/dl (8.4-10.2) 02/22/25 05:57
Magnesium 2.0 mg/dl (1.6-2.3) 02/21/25 06:58
Total Bilirubin 0.7 mg/dl (0.2-1.3) 02/19/25 05:49
AST 28 U/L (14-36) 02/19/25 05:49
ALT 12 U/L (0-35) 02/19/25 05:49
Alkaline Phosphatase 60 U/L (38-126) 02/19/25 05:49
Total Protein 6.0 g/dl (6.3-8.2) L 02/19/25 05:49
Albumin 3.3 g/dl (3.5-5.0) L 02/19/25 05:49
Physical Exam
-
General: Well Developed and Well Nourished
HEENT: Moist Mucous Membranes.
Respiratory: Non Labored Respirations
GI: Soft, non-Tender (grossly), Distended (severe) and Other (stoma pink, viable. stool present, no gas)
reducible abdominal wall hernia present at umbilical region, midline abdominal surgical incisional scar present.
Skin: Warm and Dry
Neuro: Awake, Alert and AO x 3
Psych: Calm
Patient has a richard catheter: No
Patient has a central line: No
--- NOTE | 2025-02-23 07:48 | W.PN.HOSP.TC ---
Today's Communication/Plan
-
OK for DC today
Assessment / Plan
Assessment / Plan
54-year-old with small bowel obstruction abdominal pain and bloating admitted for SBO.
CT abdomen pelvis-compatible with high-grade small bowel obstruction.Continued growth of a cystic mass in the pelvis no measuring 10.8 cm in size.Mild abdominal pelvic ascites. Similar appearance of a large number of liver lesions with the largest
measuring 9.6 research and insights executive in the left lobe incompletely characterized on this exam but felt to represent hemangiomas on the prior abdominal MRI. Right hilar lymphadenopathy, inflammatory/reactive versus metastatic.
# Small bowel obstruction
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
-s/p NGT
-improving with ostomy output
-tolerating LRD, OK for DC
-appreciate GS
Reducible Abdominal wall hernia
-outpatient general surgery follow up
# 10.8 cm cystic mass in the pelvis-discussed with interventional radiology there is no peritoneal carcinomatosis therefore not able to biopsy and wound able to puncture the cyst. Hilar nodes could be sampled via bronchoscopy/EUS not percutaneously.
-appreciate Guest Advisor/Onc Eval
-s/p MRI - benign appearing
MR IMPRESSION:
10.2 cm midline pelvic cystic lesion that appears to arise from the left ovary. Smaller 3.6 cm cystic lesion of the right ovary. Both are simple appearing without significant nodularity, septations, or enhancement.
Mild abdominopelvic ascites.
Hepatic Hemangiomas
-MRI ordered
Hypokalemia
-replete
# History of lump in breast -details unclear, sister doesn't think it was cancer.
# PTSD/bipolar disorder
-continue home meds (that are on formulary0
# Overactive bladder
# Hypothyroidism-add IV levothyroxine
# Developmental delay-lives in a skilled nursing with caregiver
# DVT prophylaxis-Lovenox
# Full code
Anticipated Discharge: Today
Subjective/Interval History
-
Date of Service: February 23, 2025
feeling well
eating and drinking
wants to eat breakfast here
Objective Data
-
Vital Signs:
Vital Signs
Temp Pulse Resp BP Pulse Ox
98.6 F 98 17 130/94 95
02/22/25 23:10 02/22/25 23:10 02/22/25 23:10 02/22/25 23:10 02/22/25 23:10
I&O
02/22/25 02/23/25 02/24/25
06:59 06:59 06:59
Intake Total 2835 / 2835 750 / 750
Output Total 500 / 500 350 / 350
Balance 2335 / 2335 400 / 400
Review of Systems
-
History Source: Patient
All other systems: Reviewed and negative
Physical Exam
-
General: No Apparent Distress
HEENT: PERRLA
Respiratory: Clear to Auscultation; Negative Wheezes
Cardiac: Regular Rhythm and S1/S2
GI: Soft and Other (ostomy with output, abdominal wall reducible hernia )
Musculoskeletal: No Edema
Skin: Warm and Dry; Negative Rash
Neuro: AO x 3
Psych: Calm
Data Reviewed
-
Diagnostic Radiology: Report Reviewed by me
Labs: Labs Reviewed by me
--- NOTE | 2025-02-23 07:52 | W.DS.TRANS ---
DC Summary - Registry Nurse
-
Discharge Instructions:
Discharge Diagnosis/Procedures small bowel obstruction, ovarian cyst, hepatic
hemangiomas, abdominal wall hernia
Diet Low Residue
Additional Diets Low residue diet x 1 week then advance as
tolerated
Activity As tolerated
Driving Restrictions As prior to admission
Bathing Restrictions None
Other Services VN,PT
Instructions:
Stand-Alone Forms:
Changes to Home Medications: Yes
Discharge Medications:
DC Medications w/original date entered in [employer]
divalproex 500 mg tablet,extended release 24 hr 750 mg PO HS 01/23/17
levothyroxine 50 mcg tablet 50 mcg PO DAILY 01/23/17
pseudoephedrine HCl 30 mg tablet (Sudogest) 30 mg PO Q6 PRN nasal congestion 01/23/17
risperidone 3 mg tablet 3 mg PO HS 01/23/17
acetaminophen 325 mg tablet 650 mg PO Q4HPRN PRN mild pain/headache/temp>101 07/12/24
atomoxetine 18 mg capsule 18 mg PO DAILY Mental Health/Anxiety 07/12/24
calcium 600 mg (as carbonate)-vitamin D3 10 mcg (400 unit) tablet (Calcium 600 + D(3)) 2 tab PO HS Supplement 07/12/24
divalproex 250 mg tablet,extended release 24 hr 250 mg PO DAILY Mental Health/Anxiety 07/12/24
docusate sodium 100 mg capsule 100 mg PO BID Constipation 07/12/24
hydroxyzine HCl 25 mg tablet 25 mg PO DAILYPRN PRN anxiety before medical procedure 07/12/24
latanoprost 0.005 % eye drops 1 drp BOTH EYES HS Eye Condition 07/12/24
loratadine 10 mg tablet 10 mg PO DAILYPRN PRN allergy/cough 07/12/24
therapeutic multivitamin 1 tab PO DAILY Supplement 07/12/24
donepezil 10 mg tablet 10 mg PO HS 02/18/25
magnesium hydroxide 400 mg/5 mL oral suspension (Milk of Magnesia) 400 mg PO DAILY PRN constipation 02/18/25
tolterodine 1 mg tablet 1 mg PO HS 02/18/25
polyethylene glycol 3350 17 gram oral powder packet (Gavilax) 17 g PO DAILYPRN PRN constipation #0 ea 02/23/25
Home Medication Changes
Stop Loperamide until further directed by outpatient physicians
Take Miralax if needed for constipation.
Pending Results: No
[2025-02-23 07:54] LABS: Glucose - Point of Care 81 mg/dl (70-99)
[2025-02-23 08:00] VITALS: BP 129/65
[2025-02-23] MEDS: DEPAKOTE ER (24 HR RELEASE) 250 MG PO (08:50)
[2025-02-23] MEDS: NSS (PRESERVATIVE FREE) IV (09:11)
[2025-02-23] MEDS: SYNTHROID 50 MCG PO (10:43)
--- NOTE | 2025-02-23 13:13 | CM ---
Patient medically cleared for discharge. Spoke with Rupa from [facility] who stated that staff will be in today to transport patient back.
# For report [phone] x [phone]
# For fax [phone]
Plan: Case management will continue to follow and assist with discharge planning. Back to [facility] today.
[2025-02-23 15:00] VITALS: BP 138/82
== END 2025-02-23 16:42 | disposition home or self-care (01) | DRG 394 ==
LOC: 2 SOUTH 14:28
PROVIDERS: Nurse Practitioner; Registered Nurse; ADMITTING PHYSICIAN Internal Medicine; ATTENDING PHYSICIAN Student in an Organized Health Care Education/Training Program; CONSULT PHYSICIAN Obstetrics & Gynecology Gynecologic Oncology; EMERGENCY PHYSICIAN Emergency Medicine; FAMILY PHYSICIAN Internal Medicine; OTHER PHYSICIAN Surgery
PROC: 0D9670Z Drainage of Stomach with Drainage Device, Via Natural or Artificial Opening (ICD-10-PCS; 2025-02-18)
DX: K43.9 Ventral hernia without obstruction or gangrene (principal); J98.11 Atelectasis; K56.50 Intestinal adhesions [bands], unspecified as to partial versus complete obstruction; R18.8 Other ascites; F31.9 Bipolar disorder, unspecified; D18.03 Hemangioma of intra-abdominal structures; R62.50 Unspecified lack of expected normal physiological development in childhood; N32.81 Overactive bladder; F43.10 Post-traumatic stress disorder, unspecified; E03.9 Hypothyroidism, unspecified; N94.89 Other specified conditions associated with female genital organs and menstrual cycle; R59.0 Localized enlarged lymph nodes; E87.6 Hypokalemia; N28.1 Cyst of kidney, acquired; N73.6 Female pelvic peritoneal adhesions (postinfective); M41.9 Scoliosis, unspecified; N83.201 Unspecified ovarian cyst, right side; N83.202 Unspecified ovarian cyst, left side; Z90.49 Acquired absence of other specified parts of digestive tract; Z93.3 Colostomy status; Z88.8 Allergy status to other drugs, medicaments and biological substances; Z91.048 Other nonmedicinal substance allergy status; Z79.890 Hormone replacement therapy; Z85.3 Personal history of malignant neoplasm of breast
CPT/HCPCS: 71045; 72197; 74018; 74177; 76856; 80048; 80053; 81003; 81015; 82105; 82378; 82962; 83605; 83690; 83735; 84443; 85025; 85027; 86304; 87070; 93005; 96361; 96374; 96375; 97163; 99285; A9575; J2358; Q9967

== ENCOUNTER → 2025-04-12 11:18 | Outpatient (REF) | payer MEDICARE, MEDICAID, SELFPAY | LOC: HWWDC 11:18 | PROVIDERS: ATTENDING PHYSICIAN Internal Medicine; REFERRING PHYSICIAN Nurse Practitioner Adult Health | DX: Z12.31 Encounter for screening mammogram for malignant neoplasm of breast (principal) | CPT/HCPCS: 77063; 77067 ==